=== PATIENT | female | born 1965 | race African-American/Black ===

== ENCOUNTER 2021-05-01 07:22 | Inpatient (IN) | payer OTHER ==
[~2021-05-01] VITALS: Ht 172.7 cm; Wt 159.2 kg
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
[~2021-05-01 07:22] MED LIST: ADALAT CC30 MG; ADVAIR 250-501 EACH; ASPIR 8181 MG; KEPPRA 500 MG500 M1; OXYCODONE HCL 55 MG; PERCOCET; TOPROL XL25 MG
[2021-05-01 07:23] VITALS: BP 133/76
[2021-05-01 10:00] VITALS: BP 119/86
--- NOTE | 2021-05-01 22:22 | NUR ---
PT ARRIVED ON UNIT POST SURGERY AT 2129. PT IS TEARFUL, YELLING, AND VERY ANXIOUS. C/O PAIN AND FEELING COLD. PRN PAIN MEDICATION PROVIDED DIRECTED AND WARM BLANKET APPLIED TO PT. ADMISSION COMPLETE. PT LEG BRACE WAS TIGHT AND PT C/O OF FEELING THOUGH HER LEG WAS GOING NUMB. NURSE READJUSTED LEG BRACE AND CHECKED PULSES AND SENSATION. PT STATED SHE COULD FEEL AFTERWARDS. PT IS ON ROOM AIR. VSS. AFEBRILE. CLEAR LIQUID DIET. WATER PITCHER PROVIDED. PT HAS BEEN EDUCATED ON USE OF CALL LIGHT AND BED CONTROLS. WILL CONTINUE TO MONITOR.
[2021-05-02] MEDS ORDERED: SYMBICORT80 MCG/4.1 INH (04:08)
[2021-05-02] MEDS ORDERED: ATORVASTATIN CA80 MG PO (04:08)
[2021-05-02] MEDS ORDERED: NIFEDIPINE ER30 MG PO (04:09)
[2021-05-02] MEDS ORDERED: HYDROCHLOROTHIA25 M1 PO (04:09)
[2021-05-02] MEDS ORDERED: OMEPRAZOLE 20 M20 M1 PO (04:10)
[2021-05-02] MEDS ORDERED: TIZANIDINE HCL4 M1 PO (04:10)
[2021-05-02] MEDS ORDERED: FLUTICASONE PRO16 GM INH (04:11)
[2021-05-02 04:24] VITALS: BP 140/80
[2021-05-02 05:32] LABS: HEMATOCRIT 29.5 % (37.0-47.0); HEMOGLOBIN 9.4 gm/dL (12.0-15.0)
[2021-05-02 05:44] LABS: POTASSIUM 4.3 mmol/L (3.5-5.1)
[2021-05-02 07:14] VITALS: BP 112/61
--- NOTE | 2021-05-02 11:24 | NUR ---
ASSUMED PT CARE THIS AM. PT IS ALERT & ORIENTED X4. PT HAS IV SITE ON L AC SALINE LOCKED. PHYSICAL THERAPY WAS WORKING WITH PT THIS AM. PT IS CURRENTLY SITTING ON THE CHAIR WITH CALL LIGHT WITHIN REACH. PT IS ON ROOM AIR. PT HAS BEEN CRYING AND C/O OF PAIN. GIVEN PAIN MEDICATION PER PT REQUEST. PT HAS R LEG IMMOBILIZER, RAYMOND DRESSING, VIVIANE WRAP AND ICE PACK. WILL CONTINUE TO MONITOR PT. FOLLOW POC.
--- NOTE | 2021-05-02 12:41 | O ---
[facility] [place] [address] OPERATIVE REPORT Name: VANNA TOLENTINO Room #: 440-P ADM IN M.R.#: [id number] Admission: 05/01/21 Attend Phys: Uri Mckinney, Discharge: Date of : 65 Report #: [id number] THIS REPORT FOR: cc: [facility] - Clinic physician unknown [facility] - Clinic physician unknown Keo Arias MD ~ DATE OF SERVICE: 05/01/2021 PREOPERATIVE DIAGNOSES: 1. Right leg tibial plateau fracture. 2. Right leg syndesmotic injury. POSTOPERATIVE DIAGNOSES: 1. Right leg tibial plateau fracture. 2. Right leg syndesmotic injury. PROCEDURES: 1. Right leg tibial plateau open reduction internal fixation. 2. Right syndesmotic open reduction internal fixation. SURGEON: Keo Arias MD RIGGER APPRENTICE: None. ANESTHESIA: General. ESTIMATED BLOOD LOSS: 100 mL. DRAINS: No drains. TOURNIQUET TIME: 120 minutes. DESCRIPTION OF PROCEDURE: The patient was brought to the operating room where she was placed under general anesthesia. Once under adequate general anesthesia, her right lower extremity was prepped and draped in a sterile manner. The extremity was elevated and a tourniquet placed to 350 mmHg. An anterior incision overlying the patella extending distally down the anterior tibia was then made. This was dissected down through the soft tissue to the anterior knee, and patellar tendon as well as the anterior tibia. The lateral compartment was opened exposing the fractures. Any hematoma was evacuated. There was a medial fracture as well. Any hematoma was evacuated from the fracture site. A provisional reduction with a 3.5 mm screw was made after placing a clamp on the lateral tibia over to the medial tibia. Reduction of the joint surface was achieved with a Justin elevator through this lateral window prior to provisional fixation with a lag screw across the 2 fracture fragments. Once this was in place, the lateral plate was placed after reducing the medial [facility] [address] [place] [address] OPERATIVE REPORT Name: VANNA TOLENTINO Room #: 440-P [facility] IN .R.#: [id number] Admission: 05/01/21 Attend Phys: Uri Mckinney, Discharge: Date of : 65 Report #: [id number] to lateral condyles of the proximal tibia. Excellent fixation and satisfactory alignment was achieved. This was a very long plate with 4 screws distal to the shaft fracture site. The medial joint was then reduced and fixed with a medial plate as well with locking screws proximally as in the lateral proximal plate from the Synthes set. Excellent fixation and alignment was achieved once these [address] The wound was irrigated copiously. Reduction of the syndesmotic ligament and fibular fracture was achieved with 2 distal screws placed across the syndesmotic joint. This was done through 2 percutaneous incisions, thus reducing the proximal fibular fracture. Once complete excellent fixation and alignment was achieved, the wound was irrigated copiously and closed with #1 Vicryl in the deep fascia, 2-0 Vicryl in subcutaneous tissues and zoraida were used for the skin. The wound was dressed with Xeroform, 4 x 4's, and a sterile soft compressive dressing along with a knee immobilizer. Tourniquet was let down at 120 minutes. Toes were pink and warm. Good capillary refill. There were no complications from the procedure. The patient tolerated the procedure well and was to the recovery room without incident. <ELECTRONICALLY SIGNED> By: Keo Arias MD 05/02/21 1241 1948 06 Keo Arias MD /nt
[2021-05-02 16:21] VITALS: BP 105/81
[2021-05-02 20:24] VITALS: BP 131/78
--- NOTE | 2021-05-03 03:00 | NUR ---
ASSESSED AT START OF SHIFT. PT C/O PAIN PO AND IV PAIN MEDICATION GIVEN SEE EMAR. PT RATES RT LEG PAIN 03/28. DENIES N/V. EXT CATH IN PLACE. FALL PRECAUTION MAINTAINED. WILL CONT TO MONITOR.
[2021-05-03 05:02] LABS: HEMATOCRIT 24.7 % (37.0-47.0)
[2021-05-03 05:22] LABS: POTASSIUM 4.6 mmol/L (3.5-5.1)
[2021-05-03 07:53] VITALS: BP 123/78
--- NOTE | 2021-05-03 10:00 | O ---
[facility] [place] [address] OPERATIVE REPORT Name: VANNA TOLENTINO Room #: 440-P ADM IN M.R.#: [id number] Admission: 05/01/21 Attend Phys: Uri Mckinney, Discharge: Date of : 65 Report #: [id number] THIS REPORT FOR: cc: [facility] - Clinic physician unknown [facility] - Clinic physician unknown Keo Arias MD ~ DATE OF SERVICE: 05/02/2021 PREOPERATIVE DIAGNOSIS: Right leg deep and posterior compartment syndrome. POSTOPERATIVE DIAGNOSIS: Right leg deep and posterior compartment syndrome. PROCEDURE: Right leg fasciotomy, superficial and deep posterior compartments. SURGEON: Keo Arias MD FELTER TENNIS BALLS: None. ANESTHESIA: General. ESTIMATED BLOOD LOSS: 50 mL. DRAINS: No drains. TOURNIQUET TIME: 30 minutes. DESCRIPTION OF PROCEDURE: The patient was brought to the operating room, where she was placed under general anesthesia. Once under adequate general anesthesia, her right lower extremity was prepped and draped in a sterile manner. The extremity was elevated and a tourniquet placed to 350 mmHg. A medial incision approximately 15 cm in length was made with dissection carried down to the fascia of the posterior leg. This was then incised through the superficial posterior compartment. Exposure was then made of the posterior deep compartment. This was then released bluntly with my finger. Pulses in the legs were verified via Doppler to be excellent, proximal and distal to the fracture sites in the leg. The wound was then irrigated copiously and closed with 0 Vicryl in , 2-0 Vicryl in subcutaneous tissue, zoraida were used for the skin. The fascia was left open. Tourniquet had been let down in the middle of the procedure in order to verify blood flow. The wounds were dressed with sterile soft compressive dressings. The patient was sent to the recovery room without incident. <ELECTRONICALLY SIGNED> By: Keo Arias MD 05/03/21 1000 1419 1437 Keo Arias MD /nt
--- NOTE | 2021-05-03 12:03 | NUR ---
Assumed pt care this am. Pt is alert & oriented x4. Pt has iv sites on l ac & l wrist. Physical therapy was working with pt this am. Ordered new knee immobilizer. Pt has external cath purewick in place. Given pain medication as per pt request. Pt daughter at the bedside. Will continue to monitor pt. Follow POC.
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
[2021-05-03 20:45] VITALS: BP 128/80
--- NOTE | 2021-05-04 02:58 | NUR ---
ASSESSED AT START OF SHIFT. PT RESTING IN BED. REQUESTED PAIN MEDS. PO MEDICATTION GIVEN. FALL PREC IN PLACE. PT IS OBESE AND NWB ON THE RT LEG. EXT FEMALE CATH IN PLACE. DENIES N/V. TEARFUL WHEN IN PAIN MANAGED WITH HYDROCODONE. NO FURTHER SIGNS OF DISCOMFORT. WILL CONT TO MONITOR.
[2021-05-04 04:22] VITALS: BP 112/78
[2021-05-04 08:21] LABS: HEMATOCRIT 23.1 % (37.0-47.0); HEMOGLOBIN 7.5 gm/dL (12.0-15.0); MCH 27.5 pg (26.0-34.0); MCHC 32.3 g/dL (28.0-37.0); MCV 85.1 fL (80.0-100.0); RBC 2.72 mil/uL (4.20-5.00); RDW 14.1 % (10.5-14.5); WBC 13.4 thou/uL (4.0-11.0)
[2021-05-04 08:30] LABS: CALCIUM 8.5 mg/dL (8.5-10.1); CREATININE 1.5 mg/dL (0.6-1.0)
--- NOTE | 2021-05-04 13:25 | NUR ---
ON-GOING ASSESSMENT: CM REVIEWED CHART AND SPOKE WITH PATIENT AT THE BEDSIDE. PT CONTINUES TO WORK WITH PHYSICAL THERAPY. [facility]N IS FOLLOWING PATIENT AND REPORTS THEY CAN MEDICALLY ACCEPT PENDING INSURANCE AUTH ONCE PT IS MEDICALLY STABLE. CM SPOKE WITH PATIENT WHO IS AGREEABLE WITH THE PLAN. CM WILL CONTINUE TO FOLLOW TO ASSIST NEEDED.
[2021-05-04 16:26] VITALS: BP 119/61
[2021-05-04 19:27] VITALS: BP 114/67
--- NOTE | 2021-05-05 04:13 | NUR ---
ALERT AND ORIENTED. SHE HAS BEEN HAVING LOOSE STOOLS. DENIES ANY ABDOMINAL PAIN OR NAUSEA. USING BEDPAN. AFEBRILE, IMMOBILIZER TO RLE.CALLS WITH NEEDS.
--- NOTE | 2021-05-05 08:14 | NUR ---
SENT DR BENDER A ROXANA TEXT THIS MORNING AT 0708 INFORMING HIM OF THE PATIENTS REFUSAL OF HER BUDESONIDE. I REQUESTED THAT MEDICATION BE DC'D AND DR BENDER AGREED. MEDICATION CHANGED BASED ON VERBAL ORDER FROM DR BENDER.
[2021-05-05 08:29] VITALS: BP 112/73
--- NOTE | 2021-05-05 10:32 | NUR ---
A/O X 4. ROOM AIR. BEDBOUND. LEFT AC IV AND LEFT FOREARM IV. RIGHT LEG 3+ EDEMA, RAYMOND DRESSING HAS DRIED BLOOD ON IT, RIGHT LEG IN IMMBOLIZER. LOOSE INCONT BM TODAY. HELD MIRALAX. NORCO GIVEN FOR RIGHT LEG PAIN.
--- NOTE | 2021-05-05 13:24 | NUR ---
ON-GOING ASSESSMENT: CASS REVIEWED CHART AND SPOKE WITH LIASON FROM WHO REPORTS THEY HAVE RECEIVED INSURANCE AUTH. CM NOTIFIED ATTENDING WHO STATED PT IS STABLE FOR DISCHARGE TODAY. PT IS GETTING HER COVID TEST COMPLETED WITH ANTICIPATION OF GOING TO 5N THIS AFTERNOON. CASS SPOKE WITH PT WHO IS AGREEABLE WITH THE PLAN AND REPORTS SHE HAS BEEN KEEPING HER ADULT DAUGHTER UPDATED. PLANS TO ADMIT TO 5N LATER TODAY.
[2021-05-05 14:21] LABS: HEMATOCRIT 22.7 % (37.0-47.0); HEMOGLOBIN 7.2 gm/dL (12.0-15.0); MCH 27.2 pg (26.0-34.0); MCHC 31.9 g/dL (28.0-37.0); MCV 85.5 fL (80.0-100.0); RBC 2.66 mil/uL (4.20-5.00); RDW 14.6 % (10.5-14.5); WBC 13.4 thou/uL (4.0-11.0)
[2021-05-05 14:33] LABS: CALCIUM 8.5 mg/dL (8.5-10.1); CREATININE 1.5 mg/dL (0.6-1.0); POTASSIUM 3.7 mmol/L (3.5-5.1)
[2021-05-05] MEDS ORDERED: ASPIRIN325 PO (14:33)
[2021-05-05] MEDS ORDERED: NORCO 10-325 T1 EACH PO (14:33)
== END 2021-05-05 16:03 | DRG 493 ==
LOC: ER 07:22 → EROBS 09:25 → TBA 17:13 → 4S 21:32
PROVIDERS: Hospitalist; Orthopaedic Surgery Foot and Ankle Surgery; ADMIT Surgery; ATTEND Surgery
PROC: 0QS Lower Bones, Reposition (ICD-10-PCS; principal; 2021-05-01)
PROC: 0QSG04Z Reposition Right Tibia with Internal Fixation Device, Open Approach (ICD-10-PCS; principal; 2021-05-01)
PROC: 0KNS0ZZ Release Right Lower Leg Muscle, Open Approach (ICD-10-PCS; principal; 2021-05-01)
DX: S82.141A Displaced bicondylar fracture of right tibia, initial encounter for closed fracture (principal); D62 Acute posthemorrhagic anemia; T79.A0XA Compartment syndrome, unspecified, initial encounter; Z68.43 Body mass index [BMI] 50.0-59.9, adult; W18.39XA Other fall on same level, initial encounter; Y93.89 Activity, other specified; Y92.89 Other specified places as the place of occurrence of the external cause; Y99.8 Other external cause status; Z20.822 Contact with and (suspected) exposure to COVID-19; Z88.8 Allergy status to other drugs, medicaments and biological substances; Z91.040 Latex allergy status; Z91.013 Allergy to seafood; I10 Essential (primary) hypertension; E78.5 Hyperlipidemia, unspecified; E66.01 Morbid (severe) obesity due to excess calories; G40.909 Epilepsy, unspecified, not intractable, without status epilepticus; K21.9 Gastro-esophageal reflux disease without esophagitis
CPT/HCPCS: 10102; 50010; 50101; 50386; 51132; 51412; 56524; 56526; 56667; 57091; 57103; 57115; 57116; 57181; 58409; 58411; 58954; 58980; 58981; 58983; 62110; 62900; 70005

== ENCOUNTER 2021-05-05 11:52 | Inpatient (IN) | payer OTHER ==
[~2021-05-05] VITALS: Ht 162.6 cm; Wt 132.4 kg
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
[~2021-05-05 11:52] MED LIST changes: +ATORVASTATIN CA80 MG PO; +FLUTICASONE PRO16 GM INH; +HYDROCHLOROTHIA25 M1 PO; +NIFEDIPINE ER30 MG PO; +OMEPRAZOLE 20 M20 M1 PO; +SYMBICORT80 MCG/4.1 INH; +TIZANIDINE HCL4 M1 PO
[2021-05-05] MEDS ORDERED: NORCO 10-325 T1 EACH PO (14:33)
[2021-05-05] MEDS ORDERED: ASPIRIN325 PO (14:33)
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
--- NOTE | 2021-05-05 16:30 | NUR ---
1600 PATIENT ADMITTED TO ROOM 512. PATIENT IS ALERT AND ORIENTED X4. PATIENT GONZALEZ'S, SECURITY REP ARE EQUAL. LUNGS ARE CLEAR AND DEMINISHED. ABD IS SOFT WITH BSX4. PAIENT HAS HAD 3 LOOSE STOOLS TODAY. PATIENT IS INCONTINENT OF URINE. PATIENT HAS A BRACE ON HER RIGHT LEG. PATIENT IS NON-WT BEARING ON THE RIGHT LEG. S.L. IS PATENT IN THE LEFT ARM. FALL AND SAFETY PROTOCOLS IN PLACE. CALL LIGHT IS IN REACH. CONSENTS SIGNED. NO C/O PAIN AT THIS TIME. PT/OT/ST EVALS TO BE DONE IN A.M. WILL CONTINUE TO MONITER.
[2021-05-05 19:22] VITALS: BP 112/76
--- NOTE | 2021-05-06 00:19 | NUR ---
PT ALERT AND ORIENTED X 4. RIGHT LEG DRESSINGS INTACT WITH LARGE AMTS BLOODY DRAINAGE. BRACE INTACT TO RIGHT LEG. PT INCONT LARGE AMT LIQUID BROWN STOOL. PT C/O PAIN IN RIGHT LEG. HYDROCODONE GIVEN ORDERED. PT TAKES MEDS WITH WATER WITHOUT DIFFICULTY. BED ALARM ON FOR SAFETY. PT CHECKED ON HOURLY ROUNDS.
[2021-05-06 07:39] VITALS: BP 109/73
[2021-05-06 10:40] LABS: HEMATOCRIT 23.1 % (37.0-47.0); HEMOGLOBIN 7.3 gm/dL (12.0-15.0); MCHC 31.4 g/dL (28.0-37.0); RBC 2.69 mil/uL (4.20-5.00); RDW 14.7 % (10.5-14.5); WBC 13.2 thou/uL (4.0-11.0)
[2021-05-06 10:59] LABS: ALBUMIN 2.3 g/dL (3.4-5.0); DIRECT BILIRUBIN 0.6 mg/dL (<0.1-0.2); TOTAL BILIRUBIN 1.1 mg/dL (0.2-1.0); TOTAL PROTEIN 7.7 g/dL (6.4-8.2)
[2021-05-06 11:09] LABS: D-DIMER 6.08 ug/mLFEU (0.19-0.50); PROTIME 10.9 Seconds (10.5-12.1)
--- NOTE | 2021-05-06 11:15 | NUR ---
Pt. up to BSC & had a syncopal episode. Pt. was slow to respond so narcan was given. Labs drawn & pt went to CT. Attempted to start a NS bolus but IV infiltrated. Unable to start one so IV team notified. Pt. went down for a non-contrast CT so she could be moved to room 206
[2021-05-06 11:26] LABS: CALCIUM 8.3 mg/dL (8.5-10.1); CREATININE 2.1 mg/dL (0.6-1.0); POTASSIUM 4.3 mmol/L (3.5-5.1)
[2021-05-06 12:05] LABS: FOLIC ACID 9.8 ng/mL (8.6-58.9)
[2021-05-07 07:08] LABS: GLYCOHEMOGLOBIN (HGB A1C) 5.7 % (4.8-5.6)
--- NOTE | 2021-05-08 07:30 | EKG ---
[address] [address] ELECTROCARDIOGRAM REPORT Name: GREG TOLENTINOINA Room #: 512-P [facility] IN M.R.#: [id number] Admission: 05/05/21 Attend Phys: Chi Justin MD Discharge: 05/06/21 Date of : 65 Report #: [id number] [facility] Test Date: 2021-05-06 Test Time: 09:57:16 Pat Name: VANNA TOLENTINO Department: Room: 512 Gender: F Painter Maintenance: MINAL : 1965 Requested By: Francisca Villegas Order Number: [id number] MD: Loki Watters Measurements Intervals [place] Rate: 91 P: 58 VA: 150 QRS: -16 QRSD: 109 T: -18 QT: 376 QTc: 463 Interpretive Statements Sinus rhythm Incomplete left bundle branch block No previous ECG available for comparison Electronically Signed On 05-08-2021 7:30:29 CDT by Loki Watters [email or web address] <ELECTRONICALLY SIGNED> By: Loki Watters MD, [facility] 05/08/21 0730 0957 6 Loki Watters MD, FACC /EPI
== END 2021-05-06 12:03 | disposition short-term general hospital (02) | DRG 563 ==
PROVIDERS: Hospitalist; Internal Medicine; Nurse Practitioner Family; ADMIT Physical Medicine & Rehabilitation; ATTEND Physical Medicine & Rehabilitation
DX: S82.141A Displaced bicondylar fracture of right tibia, initial encounter for closed fracture (principal); T79.A21A Traumatic compartment syndrome of right lower extremity, initial encounter; D62 Acute posthemorrhagic anemia; Z68.43 Body mass index [BMI] 50.0-59.9, adult; W18.39XA Other fall on same level, initial encounter; G89.4 Chronic pain syndrome; E66.01 Morbid (severe) obesity due to excess calories; K21.9 Gastro-esophageal reflux disease without esophagitis; G40.909 Epilepsy, unspecified, not intractable, without status epilepticus; I95.9 Hypotension, unspecified; I10 Essential (primary) hypertension; Z88.6 Allergy status to analgesic agent; Z91.040 Latex allergy status; Z91.013 Allergy to seafood; Z93.3 Colostomy status; Y93.89 Activity, other specified; Y99.8 Other external cause status; Y92.89 Other specified places as the place of occurrence of the external cause
CPT/HCPCS: 10112

== ENCOUNTER 2021-05-06 10:33 | Inpatient (IN) | payer OTHER ==
[~2021-05-06] VITALS: Ht 162.6 cm; Wt 157.0 kg
--- NOTE | ~2021-05-06 | EEG ---
[facility] [place] [address] [place] [address] ELECTROENCEPHALOGRAM Name: VANNA TOLENTINO Room #: 206-P ADM IN M.R.#: [id number] Admission: 05/06/21 Attend Phys: Francisca Villegas MD Discharge: Date of : 65 Report #: [id number] THIS REPORT FOR: //name// This patient's EEG was done to evaluate the patient for the possibility of a seizure. EEG was done by placing the electrode by standard 10-20 system of electrode placement. Both referential and sequential montages were used for recording. Background activity in this patient's EEG is 10 Hz and 30 microvolt. Photic stimulation is unremarkable. The patient went to sleep and that is associated with bilateral slowing and vertex sharp waves. Throughout the record, no active epileptiform activity or postictal slowing was noticed. IMPRESSION: This patient's EEG is within normal limits and does not demonstrate any active epileptiform activity or postictal slowing. Thank you very much for this referral. By: 1100 1122 Ac Luna MD /nt
[~2021-05-06 10:33] MED LIST changes: +ASPIRIN325 PO; +NORCO 10-325 T1 EACH PO
[2021-05-06 12:14] VITALS: BP 115/71
--- NOTE | 2021-05-06 12:27 | NUR ---
PATIENT TRANSPORTED TO CT FIRST TO SCAN HEAD AND RIGHT LEG WITH NO CONTRAST. PATIENT TOLERATED WELL. HAD DIFFICULTY PUTTING BRACE BACK ON AND CALLED PT/OT TO MEET IN ROOM 206 CCU TO AID WITH IT. PATIENT REPORT GIVEN TO NURSE - ON DUTY. ALL BELONGINGS TRANSPORTED DOWN TO HER ROOM - IV TEAM PICKARD OF NEEDING TO START ONE DOWN IN CCU FOR CONTRAST CT SCHEDULED. PATIENT ALERT AND ORIENTED WHEN TRANSPORTED.
[2021-05-06 13:52] LABS: HEMATOCRIT 22.6 % (37.0-47.0); HEMOGLOBIN 7.3 gm/dL (12.0-15.0); MCH 27.8 pg (26.0-34.0); MCHC 32.4 g/dL (28.0-37.0); MCV 85.8 fL (80.0-100.0); RBC 2.63 mil/uL (4.20-5.00); RDW 14.5 % (10.5-14.5); WBC 13.2 thou/uL (4.0-11.0)
[2021-05-06 14:11] LABS: CALCIUM 8.6 mg/dL (8.5-10.1); POTASSIUM 3.9 mmol/L (3.5-5.1)
[2021-05-06 14:16] LABS: ALBUMIN 2.3 g/dL (3.4-5.0); TOTAL PROTEIN 7.6 g/dL (6.4-8.2)
[2021-05-06 16:31] VITALS: BP 128/91
--- NOTE | 2021-05-06 16:43 | NUR ---
PATIENT UNABLE TO COMPLETE MRI DUE TO "EXCRUCIATING" PAIN, SHE WAS CRYING AND YELLING OUT IN PAIN ASKING FOR THE PROCEDURE TO BE OVER WITH. MRI FINISHED EARLY, PARTIALLY OBTAINABLE. FENTANYL GIVEN IN MRI. DR. MORAN UPDATED THROUGHOUT SITUATION. DISCUSSED WITH DR. MORAN ONCE PATIENT RETURNED BACK TO ROOM. I DISCUSSED PAIN MEDICATION ALTERNATIVES CURRENT ORDERS WERE NOT ADEQUATELY CONTROLING PAIN TO A TOLERABLE LEVEL. DR. MORAN INSTRUCTED THIS RN TO PERFORM BEDSIDE SWALLOW EVALUATION. EVALUATION COMPLETE, PATIENT PASSED. WILL DISCUSS BACK WITH DR. MORAN.
[2021-05-06 19:30] VITALS: BP 110/71
[2021-05-07 04:20] VITALS: BP 119/66
--- NOTE | 2021-05-07 06:14 | NUR ---
PT LYING IN BED. FENTANYL PROVIDING PAIN RELIEF. RESTING COMFORTABLY. NO NEEDS VOICED. CALL LIGHT WITHIN REACH. FREQUENT OSERVATION.
[2021-05-07 07:18] VITALS: BP 97/64
[2021-05-07 11:14] VITALS: BP 99/70
[2021-05-07 16:12] VITALS: BP 121/64
--- NOTE | 2021-05-07 17:12 | NUR ---
PATIENT WAS IN PAIN EARLIER AND PRN PAIN MEDS ADMININSTERED BUT THEY WER NOT EFFECTIVE. THIS PM SHE WAS GIVNE OXYCODONE AND SHE HAS BEEN SLEEPING SINCE THEN. SHE IS ALERT ORIENTED X4 WHEN AWAKE. SHE DID REFUSE TO LET LAB DRAW HER BLOOD . STATES SHE IS IN TOO MUCH PAIN. WILL CONT WITH PLAN OF CARE.
[2021-05-07 17:45] LABS: URINE BILIRUBIN 1+ (Negative); URINE BLOOD 1+ (Negative); URINE CLARITY SL CLOUDY; URINE COLOR YELLOW; URINE GLUCOSE-RANDOM* NEGATIVE (Negative); URINE KETONES NEGATIVE (Negative); URINE NITRITE-REFLEX NEGATIVE (Negative); URINE PROTEIN (DIPSTICK) TRACE (Negative); URINE SPECIFIC GRAVITY 1.025 (1.005-1.035)
[2021-05-07 17:56] LABS: ICTOTEST (BILI CONFIRMATORY) Negative (Negative); URINE LEUKOCYTES-REFLEX 2+ (Negative)
[2021-05-07 17:58] LABS: CASTS None Seen /LPF (None Seen); CRYSTALS None Seen /LPF (None Seen); SQUAMOUS 0-3 Few /LPF (0-3); URINE RBC 3-10 Few /HPF (NONE SEEN); URINE WBC-REFLEX 6-15 Few /HPF (0-5)
[2021-05-07 19:33] VITALS: BP 128/69
[2021-05-08 02:58] LABS: HEMATOCRIT 21.5 % (37.0-47.0); HEMOGLOBIN 7.2 gm/dL (12.0-15.0); MCH 28.1 pg (26.0-34.0); MCHC 33.4 g/dL (28.0-37.0); MCV 84.3 fL (80.0-100.0); RBC 2.55 mil/uL (4.20-5.00); RDW 14.4 % (10.5-14.5); WBC 12.1 thou/uL (4.0-11.0)
[2021-05-08 03:04] LABS: CALCIUM 8.8 mg/dL (8.5-10.1); CREATININE 2.2 mg/dL (0.6-1.0)
--- NOTE | 2021-05-08 05:36 | NUR ---
PT LYING IN BED. OXY IR AND FENTANYL PROVIDING PARTIAL PAIN RELIEF. RESTING CURRENTLY. NO NEEDS VOICED. CALL LIGHT WITHIN REACH. FREQUENT OBSERVATION.
[2021-05-08 05:46] VITALS: BP 119/74
[2021-05-08 08:20] VITALS: BP 110/73
--- NOTE | 2021-05-08 11:27 | NUR ---
Assess due to RD consult. Recent right lower extremity fracture. Hx chronic narcotic use, colostomy, htn, extreme class obesity. Was on rehab then admitted to acute floor with AMS, syncopal episodes, and anxiety. Attempted visit this am, pt anxious and moaning. Stated wanted to be cleaned up-alerted RN. No much of appetite but drank ensure which has been ordered with meals. Once eating better, will either discontinue oral supplement or change to glucerna shakes due to obesity. Low nutrition risk at this time.
[2021-05-08 12:30] VITALS: BP 108/53
--- NOTE | 2021-05-08 15:52 | NUR ---
PT C/O OF INCREASED PAIN THIS AM AND HAVING AMXIETY. ASSESS PT LAKISHA BARILLAS AND DR. BUSH. PAIN MEDICATION CHANGED AND ANXIETY MEDICATION STARTED. PT REFUSES TO BE CLEANED UP HALF WAY THRO BED CHANGE SHE STATES SHE CANT TOLERATE BEING TURNED. PT ALSO REFUSING LAB DRAWS. PT SLEEPING THIS AFTERNOON AND DOES NOT WANT TO BE DISTURBED. WILL CONTINUE TO ASSESS.
[2021-05-08 16:00] VITALS: BP 118/73
--- NOTE | 2021-05-08 18:41 | NUR ---
PT HAVING FREQUENT LIQUID STOOLS WILL CALL FOR ORDER TO SEND STOOL FOR CDIFF. PT REFUSING PURE WICK OR RECTAL TUBE. PT VERY HARD TO TURN AND KEEP PAIN FREE R/T MORBID OBESITY. FREQUENTLY MEDICATE FOR PAIN. NEUROLOGY SIGN OFF CASE AND PSYCH INSTRUCT PT IS CLEAR TO GO AMA IF SHE WANTS TO BUT PT HAS NOT EXPRESSED ANY DESIRE TO LEAVE AMA TO ME.
[2021-05-08 21:00] VITALS: BP 110/72
[2021-05-09 04:45] VITALS: BP 116/72
[2021-05-09 08:20] VITALS: BP 117/75
--- NOTE | 2021-05-09 08:57 | NUR ---
PAIN MANAGEMENT POC FOR SHIFT. IVF GTT AND IVPB ANTIBIOTICS PER POC. PT IS BEDREST WITH WOUND TO LEFT BRAN. PT CAN HELP ROLL HERSELF IN BED. COMPLETE BED CHANGE DONE AT 0300 DUE TO LEAKING EXTERNAL CATH. CDIFF AND MRSA SAMPLE SENT TO LAB. PT FAMILY LIKE TO BE OVERLY INVOLVED IN CARE AND WANTS TO WATCH VIA FACETIME.
[2021-05-09 10:41] LABS: HEMATOCRIT 21.6 % (37.0-47.0); HEMOGLOBIN 7.4 gm/dL (12.0-15.0); MCH 28.8 pg (26.0-34.0); MCHC 34.1 g/dL (28.0-37.0); MCV 84.3 fL (80.0-100.0); RBC 2.56 mil/uL (4.20-5.00); RDW 14.6 % (10.5-14.5); WBC 13.7 thou/uL (4.0-11.0)
[2021-05-09 10:54] LABS: CALCIUM 9.1 mg/dL (8.5-10.1); CREATININE 2.6 mg/dL (0.6-1.0); POTASSIUM 3.6 mmol/L (3.5-5.1)
[2021-05-09 12:50] VITALS: BP 119/66
--- NOTE | 2021-05-09 14:45 | NUR ---
Patient admits to CCU from [facility] rehab post rapid responce. Patient intially admit Apr 13 post fall and R tibia plateau fx s/p ORIF. Patient then dc to acute rehab unit with readmission to acute care. patient resides at extended stay [facility] with adult dtr and granddtr. Plan to return to extended stay post dc from rehab. Patient crying in pain today. Delay dc to rehab unit until pain better controlled. Possible dc in am.
[2021-05-09 16:45] VITALS: BP 120/76
[2021-05-09 19:22] VITALS: BP 120/69
--- NOTE | 2021-05-10 02:45 | NUR ---
PT IS ALERT AND ORIENTED X4. COMPLAINS OF PAIN IN RIGHT LEG. PAIN MEDS GIVEN SEE MAR FOR TIME OF ADMINISTRATION. ON ROOM AIR LUNGS ARE CLEAR. SLEEPING AFEER PAIN MEDS GIVEN TO PT. APPEARS TIRED FROM THERAPY TODAY NOTED SLEEPY TONIGHT. SINUS RHYTHM NOTED. PULLS THE LEADS OFF HER DOESNT WANT THE MONITOR ON HER SHE REPORTS. EXPLAIN ITS IN HER PLAN OF CARE. DRESSING TO RIGHT LEG. CALL LIGHT WITHIN REACH IF NEEDS ASSTACNCE
[2021-05-10 03:15] VITALS: BP 140/77
[2021-05-10 07:54] VITALS: BP 121/78
[2021-05-10 11:08] VITALS: BP 112/72
--- NOTE | 2021-05-10 11:31 | NUR ---
PT IS A&OX4. PT PULLED OUT IV AND IS REFUSING FOR STAFF TO STICK HER FOR LABS. RECEIVED ORDER FROM NEPHROLOGY FOR MIDLINE. PT AGREED TO MIDLINE INSERTION. PT CRYING OUT IN PAIN. EDUCATED PT TO CALL WHEN IN PAIN FOR PAIN MEDICATION. PT REFUSING TO BE CHANGED AT THIS TIME DUE TO PAIN. GAVE PRN HYDROCODONE FOR PAIN IN RIGHT LEG. DRESSING TO RIGHT LEG IS INTACT. 3+ PITTING EDEMA TO RIGHT LEG AND FOOT. WAITING FOR MIDLINE TO BE PLACED AT THIS TIME. WILL CONTINUE TO MONITOR.
--- NOTE | 2021-05-10 12:26 | NUR ---
VAT CONSULTED BY RENAL MD FOR MIDLINE. PT'S LABS,MEDS,HX,REVIEWED. PT HAS VERY LARGE ARMS DIFFICULT SEEING VESSELS. R ARM HAS SEVERAL NONCOMPRESSABLE VESSELS. LIAN BASILIC WAS WIDELY PATENT BUT VERY DEEP. 4FR BIOFLO MIDLINE TRIMMED TO 16CM INSERTED TO 0CM WITH BRISK BR. DISCUSSED WITH PT TO NOT PULL THIS LINE OUT SINCE SHE HAS LIMITED VESSELS. MIDLINE RELEASED FOR IMMEDIATE USE PER PROTOCOL
[2021-05-10 13:04] LABS: ALBUMIN 2.2 g/dL (3.4-5.0); CALCIUM 8.8 mg/dL (8.5-10.1); CREATININE 2.6 mg/dL (0.6-1.0); PHOSPHORUS 5.8 mg/dL (2.6-4.7)
[2021-05-10 15:51] VITALS: BP 105/76
--- NOTE | 2021-05-10 17:09 | NUR ---
5N following and can accept for readmission once medically stable and pain control improved.
[2021-05-10 19:43] VITALS: BP 118/71
--- NOTE | 2021-05-11 02:14 | NUR ---
HAD MULTIPLE DIARRHEA STOOLS. BARRIER CREAM USED FOR COCCYX AND PERIAREA. NOTIFIED ELIGIBILITY CONSULTANT AND LOMOTOL GIVEN. ASSIST TO REPOSITION. CONTINUE TO ASSES
[2021-05-11 05:25] VITALS: BP 108/87
--- NOTE | 2021-05-11 06:00 | NUR ---
RECEIVED REPORT FROM MERLIN JENNINGS.ASSUMED CARE AT 0100 AM.PT WAS SLEEPING THEN THIS MORNING PT COMPLAIN OF LEG PAIN.FENTANYL GIVEN;SLEEPING WHEN REASSESED.MONITOR SHOWS SR.POC CONTINUED.
[2021-05-11 08:10] VITALS: BP 133/71
[2021-05-11 11:20] VITALS: BP 107/70
[2021-05-11 12:50] LABS: CALCIUM 8.7 mg/dL (8.5-10.1); CREATININE 2.7 mg/dL (0.6-1.0); POTASSIUM 4.3 mmol/L (3.5-5.1)
--- NOTE | 2021-05-11 16:04 | NUR ---
PT SLEEPY MOST OF SHIFT. PT CRIES OUT IN PAIN OF RLE, GOOD PAIN RELIEF WITH HYDROCODONE OR FENTYNL. PT REFUSED TO GO TO CT DUE TO PAIN. CHANGED PT'S DRESSINGS THIS SHIFT. PT INCONTINENT OF BOWELS AND URINE WITH PUREWICK IN PLACE. PT ALERT AND ORIENTED X4, BUT VERY ANXIOUS AND RESTLESS. PT DENIES NEEDS AT THIS TIME. WILL CONTINUE TO MONITOR.
[2021-05-11 16:10] VITALS: BP 114/57
[2021-05-11 20:14] VITALS: BP 113/74
[2021-05-12 05:36] VITALS: BP 122/76
[2021-05-12 05:44] LABS: ALBUMIN 2.1 g/dL (3.4-5.0); CALCIUM 8.6 mg/dL (8.5-10.1); CREATININE 2.8 mg/dL (0.6-1.0); PHOSPHORUS 6.2 mg/dL (2.5-4.9); POTASSIUM 4.1 mmol/L (3.5-5.1)
--- NOTE | 2021-05-12 06:03 | NUR ---
RECEIVED CARE OF THIS PATIENT AT 1900. PATIENT ALERT AND ORIENTED X4. C/O LOTS OF PAIN, MED GIVEN SOON POSSIBLE. DRESSING ON RLU D/I. MOANS AND GROANS MOST OF NIGHT. SLEPT LITTLE THIS SHIFT.
--- NOTE | 2021-05-12 08:31 | NUR ---
PT REFUSED OT THIS MORNING DUE TO EXCRUCIATING LEFT LEG PAIN
--- NOTE | 2021-05-12 09:36 | NUR ---
PT HAS REFUSED TO HAVE THE TELEMETRY MONITORED PATCHES REPLACED. PT IS CURRENTLY NOT ON TELEMETRY.
[2021-05-12 09:57] VITALS: BP 130/83
--- NOTE | 2021-05-12 11:13 | NUR ---
PT REFUSING TELE. CONTACT DR. OSCAR TO INFORM AND SHE GAVE ORDER TO DISCONTINUE TELE.
--- NOTE | 2021-05-12 11:32 | NUR ---
PATIENT IS A POTENTIAL CANDIDATE FOR ACUTE REHAB/5[facility]. PRIOR TO ADMITTING, PATIENT WILL HAVE TO DEMONSTRATE ABILITY TO PARTICIPATE WITH THERAPY AND HAVE TOLERANCE FOR 3 HOURS OF THERAPY A DAY. WILL NEED OR MEDICAID AUTHORIZATION. WILL CONTINUE TO FOLLOW.
--- NOTE | 2021-05-12 14:00 | NUR ---
OTL ATTEMPTED X2 AND 4 STAFF IN ROOM PUTTING LARA IN,
[2021-05-12 14:26] LABS: URINE BILIRUBIN NEGATIVE (Negative); URINE BLOOD TRACE (Negative); URINE CLARITY CLEAR; URINE COLOR YELLOW; URINE GLUCOSE-RANDOM* NEGATIVE (Negative); URINE KETONES TRACE (Negative); URINE LEUKOCYTES NEGATIVE (Negative); URINE NITRITE NEGATIVE (Negative); URINE PROTEIN (DIPSTICK) NEGATIVE (Negative); URINE SPECIFIC GRAVITY 1.015 (1.005-1.035); URINE UROBILINOGEN 0.2 E.U./dl (0.2-1.0)
[2021-05-12 14:31] LABS: PROT/CREAT RATIO 0.2; URINE CREATININE-RANDOM* 178.8 mg/dL; URINE PROTEIN-RANDOM* 30.2 mg/dL (<11.9)
[2021-05-12 16:00] VITALS: BP 117/58
--- NOTE | 2021-05-12 16:17 | NUR ---
Case discussed with the care team. DC to [facility] acute rehab on hold due to poor tolerance, pain control and anxiety issues. Pt continues on iv atb. Ortho, ID, Rehab, Renal and Neuro are involved. Will reassess early next week. The pt does not have SNF benefit with insurance plan but will need to increase tolerance and participation to go to acute rehab. Will follow.
--- NOTE | 2021-05-12 18:16 | NUR ---
PT HAD LARA PLACED THIS AFTERNOON, THERE WAS A DELAY IN LARA PLACEMENT DUE TO LATEX ALLERGY. LARA CAME FROM CENTRAL SUPPLY. PT HAD 1 BOWEL MOVEMENT THIS AM. PT REFUSED LOVENOX AND MIRALAX.
--- NOTE | 2021-05-12 18:37 | NUR ---
PT DAUGHTER CALLED AND SPOKE WITH JANETH REQUESTING THE PT BE TRANSFERRED TO [facility].
--- NOTE | 2021-05-12 19:01 | NUR ---
INFORM DR. OSCAR THAT FAMILY REQUEST TRANSFER TO [facility]. DR. OSCAR SAID THAT THIS WILL BE ADDRESSED IN THE MORNING.
[2021-05-13 02:40] VITALS: BP 118/64
[2021-05-13 05:19] LABS: ALBUMIN 1.8 g/dL (3.4-5.0); CALCIUM 8.3 mg/dL (8.5-10.1); CREATININE 2.2 mg/dL (0.6-1.0); PHOSPHORUS 5.1 mg/dL (2.5-4.9); POTASSIUM 4.2 mmol/L (3.5-5.1)
--- NOTE | 2021-05-13 06:29 | NUR ---
PT C/O R LEG PAIN, CRYING AND ANXIOUS THAT LOOSE STOOLS STARTED AGAIN, PRN MEDS GIVEN, FLUIDS INFUSING THROUGH L UPPER PICC, LARA WITH PINK URINE AND CLOTS PT THINKS IT WAS PULLED LOOKS CLEARER THIS AM, REFUSED MEALS YESTERDAY WOKE UP AT 0200 REQUESTING TURKEY SANDWICH, VSS WILL CON'T TO MONITOR PER PPOC.
[2021-05-13 08:00] VITALS: BP 113/77; BP 119/64
--- NOTE | 2021-05-13 10:36 | NUR ---
WAS NOTIFIED THAT PT IS WANTING TO TRANSFER TO [facility] TO BE CLOSER TO HER FAMILY. NOTIFIED [facility] AND SPOKE WITH HAILEE WENT OVER PT'S MEDICAL HISTORY AND SHE REQUESTED TO FAX ONLY THE [employer] INSURANCE INFO ON IT AND COVID RESULT. INFORMATION FAXED RECEIVED CONFIRMATION. SPOKE WITH PT'S NURSE KIMBERLEY AND LET HER KNOW THAT WE ARE LOOKING INTO TRANSFER AND WILL KEEP HER UPDATED.
[2021-05-13 12:00] VITALS: BP 134/83
[2021-05-13 15:40] LABS: WBC 16.3 thou/uL (4.0-11.0)
[2021-05-13 15:42] LABS: MCH 26.7 pg (26.0-34.0); MCHC 31.3 g/dL (28.0-37.0); MCV 85.2 fL (80.0-100.0); RBC 2.17 mil/uL (4.20-5.00); RDW 15.3 % (10.5-14.5)
[2021-05-13 15:47] LABS: HEMATOCRIT 18.5 % (37.0-47.0); HEMOGLOBIN 5.8 gm/dL (12.0-15.0)
[2021-05-13 16:00] VITALS: BP 125/70
[2021-05-13 16:49] LABS: HEMATOCRIT 18.7 % (37.0-47.0); HEMOGLOBIN 5.9 gm/dL (12.0-15.0)
[2021-05-13 19:24] VITALS: BP 125/50
--- NOTE | 2021-05-13 20:13 | NUR ---
Assumed care of pt this AM. Pt A&O x4, tearful. Given PRN pain medication for pain. Pt had multiple loose stools, sent specimen for cdiff, given PRN loperamide. Pt running low grade temp- notified Dr. Dominguez. Orders for bld cultures x2 & CBC obtained. Critical hgb of 5.[address] Dominguez. Orders for type & screen w/ 2 units PRBC obtained. Pt to get CT abd today w/ GI consulted. Pt needs met throughout day. Spoke to pts daughter & answered all questions.
[2021-05-13 23:24] VITALS: BP 85/47
[2021-05-14] VITALS (8 sets, daily range): BP systolic 95–126; BP diastolic 49–79
[2021-05-14 04:31] LABS: ALBUMIN 1.6 g/dL (3.4-5.0); CALCIUM 8.2 mg/dL (8.5-10.1); CREATININE 1.5 mg/dL (0.6-1.0); PHOSPHORUS 4.4 mg/dL (2.5-4.9); POTASSIUM 3.8 mmol/L (3.5-5.1)
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
[2021-05-14 05:27] LABS: ABSOLUTE NEUTROPHILS 11.1 thou/uL (1.4-8.2); BASOPHILS 0.6 % (0.0-2.0); EOSINOPHILS 2.2 % (0.0-3.0); LYMPHOCYTES 13.9 % (24.0-44.0); MCH 28.1 pg (26.0-34.0); MCHC 32.4 g/dL (28.0-37.0); MCV 86.8 fL (80.0-100.0); MONOCYTES 6.4 % (1.0-8.0); PLATELET COUNT 500 thou/uL (150-400); POLYS 76.9 % (36.0-66.0); RBC 2.11 mil/uL (4.20-5.00); RDW 15.6 % (10.5-14.5); WBC 14.4 thou/uL (4.0-11.0)
[2021-05-14 05:44] LABS: HEMATOCRIT 18.3 % (37.0-47.0); HEMOGLOBIN 5.9 gm/dL (12.0-15.0)
[2021-05-14 08:02] LABS: HEMOGLOBIN 6.7 gm/dL (12.0-15.0); MCH 27.4 pg (26.0-34.0); MCV 85.7 fL (80.0-100.0); RBC 2.46 mil/uL (4.20-5.00); RDW 16.4 % (10.5-14.5); WBC 14.2 thou/uL (4.0-11.0)
--- NOTE | 2021-05-14 09:00 | NUR ---
pt con't with freq. liquids stools, c/o r leg pain scheduled and prn pain meds given, pt left for ct and 2u prbc given, critical hh called dr lakeshia armijo on pt and notified reordered cbc after 2nd unit finished, vss except bps 90's to low 100's, r arm iv infiltrated and dc'd, report given to next shift to con't with ppoc.
--- NOTE | 2021-05-14 10:54 | NUR ---
Assumed care of pt this AM. Pt is A&O x4, tearful about pain in leg. Pt received 2 units PRBC w/ repeat hgb this AM still <7. Dr. Dominguez paged & orders for 1 unit PRBC obtained & transfusing. Pt taken for CT rt leg this AM as well. Ortho & GI saw pt today. Pt will be NPO after midnight tonight per GI. VSS - tachycardia w/o fever. Will continue to monitor pt throughout day.
[2021-05-14 17:05] LABS: HEMATOCRIT 22.9 % (37.0-47.0); HEMOGLOBIN 7.4 gm/dL (12.0-15.0)
--- NOTE | 2021-05-14 22:57 | NUR ---
ASSUMED CARE OF PT AT 1845. PT ALERT X4. ANXIOUS AND TEARFUL. C/O PAIN TO RLE AND C/O RASH ITCHING. PT STATED HER ICHING HAD BEEN GOING ON FOR SEVERAL DAYS NOTIFIED INSPECTOR CONVEYOR LINE PT ON OXYCODONE AND IS ALLERGIC TO MORPHINE. OCYCODONE DISCONTINUED. CONTINUED IV ABX ORDERED AFTER BENADRYL AND PEPCID GIVEN. FENTANYL GIVEN FOR RLE PAIN. DRESSING TO RLE REMAINS DRY AND INTACT. PULSE PALPABLE WITH DOPPLER. FOOT IS WARM. SHE WAS ABLE TO MOVE RLE. PT STATED THIS IS NEW THAT SHE CAN MOVE HER RIGHT LE. PT ANXIOUS ABOUT POSSIBLY GOING TO HAVE SURGERY TOMORROW. MUCH ENCOURAGEMENT GIVEN. NS INFUSING LEFT ML. WILL CONTINUE TO MONITOR PT FOR CHANGES.
--- NOTE | 2021-05-15 00:04 | NUR ---
STOOL FOR OB SENT TO LAB. BED CHANGED BATH COMPLETED.
[2021-05-15 04:45] VITALS: BP 121/75
[2021-05-15 07:39] LABS: ABSOLUTE NEUTROPHILS 10.6 thou/uL (1.4-8.2); ALBUMIN 1.7 g/dL (3.4-5.0); BASOPHILS 0.4 % (0.0-2.0); CALCIUM 8.5 mg/dL (8.5-10.1); CREATININE 1.3 mg/dL (0.6-1.0); EOSINOPHILS 2.5 % (0.0-3.0); HEMOGLOBIN 7.5 gm/dL (12.0-15.0); LYMPHOCYTES 15.5 % (24.0-44.0); MCH 27.8 pg (26.0-34.0); MCHC 32.4 g/dL (28.0-37.0); MCV 85.7 fL (80.0-100.0); MONOCYTES 6.5 % (1.0-8.0); PHOSPHORUS 3.8 mg/dL (2.6-4.7); PLATELET COUNT 515 thou/uL (150-400); POLYS 75.1 % (36.0-66.0); RBC 2.69 mil/uL (4.20-5.00); RDW 15.5 % (10.5-14.5); WBC 14.1 thou/uL (4.0-11.0)
--- NOTE | 2021-05-15 08:27 | NUR ---
DR LUNSFORD INFORMED OF RASH AND HE DID SEE PT. PT IS LESS TEARFUL THIS AM.
--- NOTE | 2021-05-15 10:24 | NUR ---
Followup: recent right lower extremity fracture with surgical intervention. Pt with extreme class III obesity. Has been refusing nearly all meals x past 4 days. C/O pain. Has drank oral supplement. NPO for possible procedure however looks like no surgical intervention needed per Provider documentation. Recommend advance diet and continue oral supplement of glucerna all meals. Low nutrition risk with appropriate nutrition interventions in place
[2021-05-15] MEDS ORDERED: LORAZEPAM 1 MG T1 MG PO (14:34)
[2021-05-15] MEDS ORDERED: LIDOPATCH1 EACH TRANSDERM (14:34)
[2021-05-15] MEDS ORDERED: ALBUTEROL2.5 MG/0.5 INH (14:34)
[2021-05-15] MEDS ORDERED: BENADRYL25 MG PO (14:37)
[2021-05-15] MEDS ORDERED: AUGMENTIN 875-1 EACH PO (14:48)
[2021-05-15 15:15] VITALS: BP 130/73
--- NOTE | 2021-05-15 15:52 | NUR ---
Patient not stable for dc. Complaining of CP having emergent cardiac cath today. Updated 5N.
--- NOTE | 2021-05-15 16:30 | EKG ---
[address] [place] [address] ELECTROCARDIOGRAM REPORT Name: RANDAVANNA Room #: 206-P ADM IN M.R.#: [id number] Admission: 05/06/21 Attend Phys: Francisca Villegas MD Discharge: Date of : 65 Report #: [id number] [facility] Test Date: 2021-05-15 Test Time: 15:10:02 Pat Name: VANNA TOLENTINO Department: Room: 206 P Gender: F Snaker: DEBBIE : 1965 Requested By: Netta Dominguez Order Number: [id number] MD: Loki Watters Measurements Intervals [place] Rate: 94 P: 55 WI: 155 QRS: -23 QRSD: 114 T: 94 QT: 370 QTc: 463 Interpretive Statements Sinus rhythm Nonspecific repol abnormality, lateral leads ST elevation, consider inferior injury Compared to ECG 05/06/2021 09:57:16 Myocardial infarct finding now present Early repolarization now present ST (T wave) deviation now present Left bundle-branch block no longer present Electronically Signed On 05-15-2021 16:30:14 CDT by Loki Watters [email or web address] <ELECTRONICALLY SIGNED> By: Loki Watters MD, [facility] 05/15/21 1630 1510 1510 Loki Watters MD, [facility] /EPI
--- NOTE | 2021-05-15 16:37 | NUR ---
1416: PATIENT COMPLAINED OF LEG PAIN, ITCHING AND SOA. DR. OSCAR MADE AWARE. HYDROCODONE AND VISTERIL ALREADY GIVEN ORDERS RECIEVED TO GIVE SOLU-MEDROL AND LASIX. 1509: PATIENT STARTED COMPLAINING OF SUBSTERNAL CHEST PAIN / AND STARTED TO VOMIT. STAT EKG ORDERED. ELEAZAR MADE AWARE. ZOFRAN GIVEN. 1520: CELESTINA AT BEDSIDE, CARDIOLOGY CALLED. STAT TROPONIN ORDERED 1553: DR. RESENDIZ AT BEDSIDE, DECISION TO TAKE PATIENT TO EMERGENT CATH. 1604: SUPERVISOR RESIDENTIAL HERE TO TRANSPORT PATIENT TO CATH.
--- NOTE | 2021-05-15 18:49 | NUR ---
Report given to JEANNA Geronimo for room 242. No questions or conerns at time of discharge. patients belongings packed up and taken to icu
--- NOTE | 2021-05-15 19:46 | NUR ---
REPORT GIVEN TO SELIN JENNINGS IN ICU. PT TO BE ADMITTED TO ICU BED 242.
[2021-05-15 21:53] LABS: HEMATOCRIT 25.7 % (37.0-47.0); HEMOGLOBIN 8.2 gm/dL (12.0-15.0); MCH 27.5 pg (26.0-34.0); RBC 2.99 mil/uL (4.20-5.00); RDW 15.7 % (10.5-14.5); WBC 16.3 thou/uL (4.0-11.0)
[2021-05-15 22:03] LABS: CALCIUM 8.5 mg/dL (8.5-10.1); CREATININE 1.3 mg/dL (0.6-1.0); POTASSIUM 4.2 mmol/L (3.5-5.1)
[2021-05-16] VITALS (66 sets, daily range): BP systolic 81–152; BP diastolic 39–94
[2021-05-16 05:34] LABS: HEMATOCRIT 23.8 % (37.0-47.0); HEMOGLOBIN 7.8 gm/dL (12.0-15.0); MCHC 32.6 g/dL (28.0-37.0); MCV 85.8 fL (80.0-100.0); RBC 2.78 mil/uL (4.20-5.00); RDW 15.6 % (10.5-14.5); WBC 12.1 thou/uL (4.0-11.0)
[2021-05-16 06:19] LABS: ALBUMIN 1.7 g/dL (3.4-5.0); CALCIUM 8.1 mg/dL (8.5-10.1); CREATININE 1.3 mg/dL (0.6-1.0); PHOSPHORUS 4.9 mg/dL (2.5-4.9); POTASSIUM 4.1 mmol/L (3.5-5.1)
--- NOTE | 2021-05-16 06:51 | NUR ---
PATIENT WITH CHEST PAIN, ELEVATED TROPONIN, HAD A CARDIAC CATH AND IS NOW IN THE ICU. WILL NEED NEW ORDERS ONCE MEDICALLY STABLE.
--- NOTE | 2021-05-16 07:38 | NUR ---
Pt HAD EMERGENT CARDIAC CATH AND NOW IN ICU. WILL PLACE ON HOLD AND AWAIT NEW ORDERS TO RESUME
--- NOTE | 2021-05-16 07:41 | NUR ---
Pt was calm & pleasant, complained of pain on right leg, meds given with partial relief. Vital signs stayed within normal limits. Pt had good urine output and 3 semi liquid bowel movements during the shift. Will continue to monitor.
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
--- NOTE | 2021-05-16 09:20 | CATHLAB ---
[facility] [place] [address] INVASIVE PROCEDURE REPORT Name: VANNA TOLENTINO Room #: 242-P ADM IN M.R.#: [id number] Admission: 05/06/21 Attend Phys: Francisca Villegas MD Discharge: Date of : 65 Report #: [id number] THIS REPORT FOR: cc: [facility] - Clinic physician unknown [facility] - Clinic physician unknown Geronimo Echavarria MD ~ APPROVED REPORT Study performed: 05/15/2021 15:44:30 Patient Details Patient Status: In-Patient Room #: The patient is a 56 year-old female Event Personnel Denise Hanson RN RN, Tonya Peguero Monitor, Romina Pizarro RT(R)() Italia Maynard Jin Enrollment Coordinator, Isela Viveros RN vest baster Performed Art Access - R radial artery Left Heart Cath w/or w/o Coronaries [id number] [facility] Hemostasis with Hemoband Indication Abnormal ECG, Dyspnea, Unstable angina , Chest pain Risk Factors Obesity, Peripheral Vascular Disease, Hypercholesterolemia, Coronary Artery DiseaseHypertension, Diabetes Previous Procedures/Diagnoses Previous PCI Procedure Narrative The Right Wrist^ was infiltrated with subcutaneous anesthesia. A 6F RADIAL SHEATH sheath was inserted into the Right Radial Artery^. Coronary angiography was performed using coronary diagnostic catheters. The right coronary system was accessed and visualized with a JR4 catheter. The left coronary system was accessed and visualized with a JL4 catheter. The cardiac catheterization was performed via the right radial artery access. During the procedure, the patient developed V. fib requiring a shock with 200 J, converting to sinus rhythm. There was significant tortuosity in the right subclavian artery, resulting in difficulty in cannulating the RCA. The injection [facility] [address] [place] [address] INVASIVE PROCEDURE REPORT Name: RANDAVANNA Room #: 242-P [facility] IN .R.#: [id number] Admission: 05/06/21 Attend Phys: Francisca Villegas, Discharge: Date of : 65 Report #: [id number] was subselective at the ostium of the RCA. Intraoperative Conscious Sedation Sedation start time: 1608 Case end Time: 1700 Fluoro Time: 10.26 minutes Dose: DAP 68963.30 cGycm2 141.64 mGy Contrast Type and Amount: Visipaque 110 ml Coronary Angiography The patient's coronary anatomy is right dominant. Diagnostic Cath Left Main The left main artery is a large-caliber vessel, with mild disease at the ostium. LAD The LAD is a moderate-sized caliber vessel, traverses the anterior wall and wraps around the apex. There is mild diffuse disease in the proximal and mid segments, 20 to 30%. Diagonal 1 This is a moderate-sized caliber vessel with mild disease proximally. It divides into 2 branches, supplying the anterolateral wall. Diagonal 2 This is a small to moderate-sized caliber vessel with mild disease proximally. Circumflex The left circumflex artery is a small to moderate-sized caliber vessel, with mild disease proximally. OM1 This is a small caliber vessel, patent with no flow-limiting obstructions. Right Coronary The RCA is a dominant vessel with a severe occlusion in the mid segment, 95%. Left Ventriculography Left Ventriculography was not performed. Hemodynamics The aortic pressure is 118/75 mmHg with a mean of 91 mmHg. Conclusion 1. There are severe occlusions in the RCA. 2. There is mild disease in the LAD and diagonal arteries. 3. The left circumflex artery is a small caliber vessel. 4. Episode of V. fib requiring shock at 200 J, with conversion to sinus rhythm. 5. Recommend PCI of RCA via femoral artery access, as there is significant tortuosity of the right subclavian artery. [facility] [address] [place] [address] INVASIVE PROCEDURE REPORT Name: VANNA TOLENTINO Room #: 242-P ADM IN M.R.#: [id number] Admission: 05/06/21 Attend Phys: Francisca Villegas, Discharge: Date of : 65 Report #: [id number] 6. Will need GI evaluation for recent anemia, prior to initiation of antiplatelet therapy. <ELECTRONICALLY SIGNED> By: Geronimo Echavarria MD 05/16/21918 8 8 Geronimo Echavarria MD /JEREMY
--- NOTE | 2021-05-16 11:42 | 2DMMODE ---
[facility] [place] [address] 2 D/M-MODE ECHOCARDIOGRAM Name: VANNA TOLENTINO Room #: 242-P ADM IN M.R.#: [id number] Admission: 05/06/21 Attend Phys: Francisca Villegas MD Discharge: Date of : 65 Report #: [id number] THIS REPORT FOR: cc: [facility] - Clinic physician unknown [facility] - Clinic physician unknown Geronimo Echavarria MD ~ APPROVED REPORT Study performed: 05/16/2021 10:14:28 EXAM: Comprehensive 2D, Doppler, and color-flow Echocardiogram Patient Location: ICU Room #: 242 Status: routine BSA: 2.29 HR: 77 bpm BP: 139/61 mmHg Rhythm: NSR Other Information Study Quality: Technically Difficult Technically limited study due to body habitus, inability to position patient. Indications Chest Pain Hypertension/HDD STEMI, Morbid obesity 2D Dimensions IVSd: 9.87 (7-11mm) LVOT Diam: 24.56 (18-24mm) LVDd: 55.43 mm PWd: 10.28 (7-11mm) Ascending Ao: 26.35 (22-36mm) LVDs: 37.81 (25-40mm) Left Atrium: 37.15 (27-40mm) Aortic Root: 27.79 mm IVC: 16.00 mm Volumes Left Atrial Volume (Systole) Single Plane 4CH: 54.02 mL Aortic Valve AoV Peak Colton.: 1.72 m/s AO Peak Gr.: 11.78 mmHg LVOT Max P.41 mmHg [facility] [address] [place] [address] 2 D/M-MODE ECHOCARDIOGRAM Name: VANNA TOLENTINO Room #: 242-P [facility] IN M.R.#: [id number] Admission: 05/06/21 Attend Phys: Francisca Villegas, Discharge: Date of : 65 Report #: [id number] LVOT Max V: 0.92 m/s JAYDA Vmax: 2.55 cm2 Mitral Valve E/A Ratio: 1.4 MV Decel. Time: 210.41 ms MV E Max Colton.: 0.90 m/s MV A Colton.: 0.64 m/s MV PHT: 61.02 ms IVRT: 92.27 ms Pulmonary Valve PV Peak Colton.: 0.99 m/s PV Peak Gr.: 3.89 mmHg Pulmonary Vein P Vein S: 0.34 m/s P Vein A: 0.27 m/s P Vein D: 0.28 m/s P Vein A Dur.: 129.2 msec P Vein S/D Ratio: 1.21 Tricuspid Valve TR Peak Colton.: 1.87 m/s TR Peak Gr.: 13.98 mmHg Left Ventricle The left ventricle is normal size. There is normal LV segmental wall motion. There is normal left ventricular wall thickness. Left ventricular systolic function is normal. LVEF is 55%. The left ventricular diastolic function is abnormal. Right Ventricle The right ventricle is normal size. The right ventricular systolic function is normal. Atria The left atrium size is normal. The right atrium size is normal. Aortic Valve The aortic valve is normal in structure. No aortic regurgitation is present. There is no aortic valvular stenosis. Mitral Valve The mitral valve is normal in structure. There is no mitral valve regurgitation noted. No evidence of mitral valve stenosis. Tricuspid Valve [facility] [address] [place] [address] 2 D/M-MODE ECHOCARDIOGRAM Name: VANNA TOLENTINO Room #: 242-P [facility] IN M.R.#: [id number] Admission: 05/06/21 Attend Phys: Francisca Villegas, Discharge: Date of : 65 Report #: [id number] The tricuspid valve is normal in structure. Trace tricuspid regurgitation. Pulmonic Valve The pulmonary valve is normal in structure. There is no pulmonic valvular regurgitation. Great Vessels The aortic root is normal in size. IVC is normal in size and collapses >50% with inspiration. Pericardium There is no pericardial effusion. <Conclusion> The left ventricle is normal size. There is normal left ventricular wall thickness. Left ventricular systolic function is normal. The right ventricle is normal size. The left atrium size is normal. The aortic valve is normal in structure. There is no mitral valve regurgitation noted. Trace tricuspid regurgitation. <ELECTRONICALLY SIGNED> By: Geronimo Echavarria MD 05/16/21 1142 114 114 Geronimo Echavarria MD /INF
--- NOTE | 2021-05-16 14:09 | NUR ---
ASSUMED CARE OF PT AT 0700. PT ALERT AND ORIENTED. THIS AM DANA WONG AND DR. NÚÑEZ AT BEDSIDE AT 0730. PLAN IS FOR PT TO GO BACK TO [facility] AND HAVE STENT PLACED. AT BEDSIDE THIS AM AND CONSENT WAS SIGNED FOR PROCEDURE. MULTIPLE FAMILY MEMBERS HAVE BEEN IN AND OUT TO SEE PT, INCLUDING HER THREE DAUGHTERS. THIS AFTERNOON AT APPROXIMATELY 1330 PT'S MIDDLE DAUGHTER AND PATIENT EXPRESSED THAT THEY DID NOT FEEL COMFORTABLE WITH THE PROCEDURE. PT WAS VERY TEARFUL AND FEARFUL OF PROCEDURE. SHE ALSO VERBALIZED, I WAS IN A LOT OF PAIN DURING PROCEDURE AND I DONT WANT TO GO THROUGH THAT ANYMORE."
--- NOTE | 2021-05-16 16:25 | NUR ---
Cm notified by cm rn and bedside nurse, jim is requesting a transfer to [facility] for her cardiac/ cath/stent. cm faxed referral to [facility] and spoke with chandrika, they will review. chart copy requested in case able to accept. visited with patient at bedside she, they know me and this is scary and she all i have, want to transfer now you can wish me a happy birthday now per jim. Active listen and support during visit. Will cont following as needed for dc need.
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
[2021-05-17] VITALS (45 sets, daily range): BP systolic 89–135; BP diastolic 49–89
--- NOTE | 2021-05-17 04:26 | NUR ---
Pt was awaken from sleep by excruciating right leg pain, reposition offered no relief. Prn 25mg fentanyl was given with no relief, pt was crying out in pain. Nettie was called and a one time dose order of 50mg fentanyl was received. Pt was able to go back to sleep 30 minutes after. Will continue to monitor.
[2021-05-17 05:18] LABS: HEMATOCRIT 21.2 % (37.0-47.0); MCH 28.6 pg (26.0-34.0); MCHC 33.1 g/dL (28.0-37.0); MCV 86.5 fL (80.0-100.0); RBC 2.46 mil/uL (4.20-5.00); WBC 11.1 thou/uL (4.0-11.0)
[2021-05-17 05:44] LABS: ALBUMIN 1.6 g/dL (3.4-5.0); CALCIUM 7.6 mg/dL (8.5-10.1); CREATININE 1.1 mg/dL (0.6-1.0); PHOSPHORUS 3.6 mg/dL (2.5-4.9); POTASSIUM 3.3 mmol/L (3.5-5.1)
--- NOTE | 2021-05-17 13:13 | NUR ---
dallas was notified during unit rounds that she wants to be transferred to [facility]. dallas spoke with lashonda at [facility], they have denied at all [facility], no icu beds. Spoke with josafat at [facility], he took jim information and declined the need for cm to fax over face sheet r/t will not accept her, will call back per josafat.
[2021-05-17 14:56] LABS: OBSERVED RETIC COUNT 3.12 % (0.6-2.6)
[2021-05-17 15:04] LABS: % SATURATION 30 % (20-39); IRON 45 ug/dL (50-170); TIBC 151 ug/dL (250-450)
[2021-05-17 15:06] LABS: ALBUMIN 1.7 g/dL (3.4-5.0); DIRECT BILIRUBIN 0.2 mg/dL (<0.1-0.2); TOTAL BILIRUBIN 0.4 mg/dL (0.2-1.0); TOTAL PROTEIN 6.1 g/dL (6.4-8.2)
--- NOTE | 2021-05-17 19:34 | NUR ---
THIS RN WAS INFORMED BY REFUGIO IN CASE MANAGMENT THAT [facility] REFUSED TO TAKE HER PT. INFORMATION WAS RELAYED TO PT AT 1400. AT 1554 RN NOTICED PT HAD RUN OF V-TACH. PT WAS COMPLETELY ASYMPTOMATIC AT THIS TIME. DR OSCAR WAS NOTIFIED. DR NÚÑEZ INFORMED WELL. ORDER FOR CBC AND BMP GIVEN THIS EVENING. WILL CONTINUE TO MONITOR.
[2021-05-17 22:02] LABS: HEMOGLOBIN 8.2 gm/dL (12.0-15.0); MCH 27.1 pg (26.0-34.0); MCHC 31.4 g/dL (28.0-37.0); MCV 86.1 fL (80.0-100.0); RBC 3.02 mil/uL (4.20-5.00); RDW 16.6 % (10.5-14.5); WBC 10.4 thou/uL (4.0-11.0)
[2021-05-17 22:10] LABS: CALCIUM 7.7 mg/dL (8.5-10.1); CREATININE 1.2 mg/dL (0.6-1.0); POTASSIUM 3.6 mmol/L (3.5-5.1)
[2021-05-18] VITALS (67 sets, daily range): BP systolic 107–226; BP diastolic 60–115
--- NOTE | 2021-05-18 02:59 | NUR ---
PT INFORMED OF NPO AT MIDNIGHT ORDERS PENDING CARDIAC CATH IN THE MORNING.
--- NOTE | 2021-05-18 09:07 | NUR ---
Pt on phone with family, refusing to cooperate with turns or bedpan RN offered. Became irate when RN asked what patient wanted to do to have a bowel movement since she could not safely get out of bed. Daughter/family on phone cursing at RN telling her to "get the fuck out of my mom's room". RN spoke with charge nurse about incident, paged hospitalist to discuss transfer.
[2021-05-18 09:11] LABS: HEMATOCRIT 26.8 % (37.0-47.0); HEMOGLOBIN 8.4 gm/dL (12.0-15.0); MCHC 31.4 g/dL (28.0-37.0); MCV 85.9 fL (80.0-100.0); RBC 3.12 mil/uL (4.20-5.00); RDW 16.7 % (10.5-14.5); WBC 11.1 thou/uL (4.0-11.0)
[2021-05-18 09:20] LABS: ALBUMIN 1.6 g/dL (3.4-5.0); CALCIUM 7.7 mg/dL (8.5-10.1); CREATININE 1.1 mg/dL (0.6-1.0); PHOSPHORUS 3.8 mg/dL (2.6-4.7); POTASSIUM 3.7 mmol/L (3.5-5.1)
--- NOTE | 2021-05-18 12:18 | NUR ---
Paged Dr. Echavarria RE: moving heart cath to tomorrow - MD returned call stating he would be by this afternoon to discuss moving the procedure with the patient.
--- NOTE | 2021-05-18 14:51 | NUR ---
Spoke with wound care nurse about specialty bed ordering and options. Will discuss.
--- NOTE | 2021-05-18 14:57 | NUR ---
Dr. Echavarria at bedside speaking with patient about heart cath being delayed until tomorrow. If hemoglobin stable and patient willing, he will perform heart cath tomorrow.
[2021-05-19] VITALS (14 sets, daily range): BP systolic 146–169; BP diastolic 72–93
--- NOTE | 2021-05-19 03:21 | NUR ---
ASSUMED CARE OF PATIENT AT 1900. PATIENT TRANSFERRED TO SPECIALTY BED. ONE LARGE BOWEL MOVEMENT. REQUESTING MINIMAL PAIN MEDS. SLEEPING WELL THROUGH THE NIGHT. PLANS FOR CATH IN THE AM. PROGRESSING SLOWLY TOWARDS POC GOALS.
[2021-05-19 05:02] LABS: HEMATOCRIT 25.7 % (37.0-47.0); HEMOGLOBIN 8.4 gm/dL (12.0-15.0); MCHC 32.6 g/dL (28.0-37.0); RBC 2.98 mil/uL (4.20-5.00); RDW 16.1 % (10.5-14.5); WBC 11.3 thou/uL (4.0-11.0)
--- NOTE | 2021-05-19 06:56 | HC ---
[facility] [place] [address] CONSULTATION Name: VANNA TOLENTINO Room #: 242-P ADM IN M.R.#: [id number] Admission: 05/06/21 Attend Phys: Francisca Villegas MD Discharge: Date of : 65 Report #: [id number] THIS REPORT FOR: cc: [facility] - Clinic physician unknown [facility] - Clinic physician unknown Neymar Johnson MD ~ DATE OF SERVICE: 05/18/2021 REASON FOR CONSULTATION: Anemia. PHYSICIAN REQUESTING: Dr. Villegas. HISTORY OF PRESENT ILLNESS: The patient is a very pleasant 56-year-old female who reports that she has been anemic when she was having children in the past. May have taken iron pills in the past than recently. She had not been told she was anemic until this hospitalization. She does admit that she eats red meat maybe once or twice a month if even then. Note that on admit, her hemoglobin was 9.4. She has received 4 units of blood. Her current hemoglobin is 8.4. She reportedly has not had any evidence of bleeding. Her iron panel appears to show replete with ferritin of 324, iron of 45, TIBC of 151, B12 of I believe, 811, and folate of 9.8. We do note that her absolute retic count is low at 0.797, suggesting this is hypoproliferative. Her UA has revealed [id number]-md-wz blood. Her thyroid has been appropriate if I recall. The patient denies any obvious blood in the urine or stool. PAST MEDICAL HISTORY: Notable for recent tibial plateau fracture on the right with compartment syndrome and I believe she has had to have surgical intervention. She also has morbid obesity with a BMI of 50+, history of a recent postoperative infection. Also, recent STEMI with an RCA of 90% occluded, but she had ____ arrhythmia during the procedure and they were not able to stent it, they have planned medical management at this time. History of colon cancer in [address] [facility]. Note that GI plans an EGD, colonoscopy as an outpatient. She has a reported history of seizure disorder, also hypertension, hyperlipidemia and GERD. IMAGING: Here has included CT abdomen and pelvis that does not show any lymphadenopathy or hepatosplenomegaly if I understand correctly. Her chest imaging likewise has not revealed any abnormalities. She has had a nuclear med scan. PHYSICAL EXAMINATION: GENERAL: The patient appears her stated age. She is in the ICU. VITAL SIGNS: Height is 5 feet 4 inches, weight is variably reported at either 291 pounds or 368 pounds, I am not sure which is correct at this time. Blood pressure 136/81, pulse 74, respirations 23. MOOD: She is pleasant, conversant. [address] [address] CONSULTATION Name: VANNA TOLENTINO Room #: 242-P [facility] IN M.R.#: [id number] Admission: 05/06/21 Attend Phys: Francisca Villegas MD Discharge: Date of : 65 Report #: [id number] NEUROLOGIC: Face is symmetrical, moving extremities. LUNGS: Symmetric, unlabored. HEART: Appears regular rate. NECK: No enlarged lymph nodes in the supraclavicular or neck. ABDOMEN: Very obese. No abnormalities noted but it would be hard to tell; nontender. EXTREMITIES: Left leg without clubbing, cyanosis or edema. ASSESSMENT AND PLAN: 1. Anemia appears to be hypoproliferative with an inappropriately low absolute recent retic count at 0.797. I will need to correct this in the typed note from today. Erythropoietin level is pending. B12, iron and folate appear to be adequate. No obvious blood in the urine or stool. She may have been iron deficient to begin or had some preexisting health issue that may be a bit of anemia of chronic disease with recent issues on top of that. 2. Tibial plateau fracture with compartment syndrome. Defer to Orthopedics and others. 3. Morbid obesity. Defer to others. 4. NSTEMI with right coronary artery at 90%. Defer to Cardiology. 5. Health maintenance. Note that GI reports outpatient plans for EGD and colonoscopy. 6. History of colon cancer in [address] [facility]. Unclear whether she had genetic testing. 7. Reported history of seizure disorder. 8. History of hypertension. Per others. 9. History of hyperlipidemia. Per others. 10. Gastroesophageal reflux disease. Per others. MEDICATIONS: At this time include metoprolol 25 daily, gabapentin 200 b.i.d., atorvastatin 40 at bedtime, aspirin 81 daily, pantoprazole 40 b.i.d., albuterol sulfate, respiratory therapy, Zofran p.r.n., loperamide p.r.n., lidocaine patch daily, lorazepam p.r.n., trazodone 100 mg at night p.r.n. and a number of other medications. Also levetiracetam 500 mg b.i.d., budesonide 0.5 mg respiratory therapy b.i.d., tizanidine 2 mg t.i.d., clopidogrel 150 mg received one time. <ELECTRONICALLY SIGNED> By: Neymar Johnson MD 05/19/21 0656 0849 1335 Neymar Johnson MD /shirley
--- NOTE | 2021-05-19 11:24 | NUR ---
PATIENT A/O X4. WAS CRY FOR RIGHT LEG PAIN. FENTANYL 25 MCG GIVEN AT 0745. PATIENT WENT TO CLOTH DYE RANGE OPERATOR AT 0945.
--- NOTE | 2021-05-19 13:01 | CATHLAB ---
[facility] [place] [address] INVASIVE PROCEDURE REPORT Name: VANNA TOLENTINO Room #: 212-P ADM IN M.R.#: [id number] Admission: 05/06/21 Attend Phys: Francisca Villegas MD Discharge: Date of : 65 Report #: [id number] THIS REPORT FOR: cc: [facility] - Clinic physician unknown [facility] - Clinic physician unknown Geronimo Echavarria MD ~ APPROVED REPORT Study performed: 05/19/2021 09:41:46 Patient Details Patient Status: In-Patient Room #: 212 The patient is a 56 year-old female Event Personnel Geronimo Echavarria Conference Planning Manager, Romina Pizarro RT(R)() Monitor, Michelle Vasquez RTR Scrub, Denise Hanson RN credit rating inspector Performed Art Access - L femoral artery* TIAGO Place w/wo Plasty Single RCA 274893 Hemostasis w/ Mynx 62136 Initial Mod Sed Same Phys/QHP Gr5y 101024 57856 Mod Sed Same Phys/QHP Ea 651120 Indication Dyspnea, Unstable angina , Chest pain, The patient presents for staged PCI involving a severe occlusion in the mid RCA segment. Risk Factors Obesity, Peripheral Vascular Disease, Hypercholesterolemia, Coronary Artery DiseaseHypertension, Diabetes Previous Procedures/Diagnoses Previous PCI Procedure Narrative The Left Groin^ was infiltrated with 1% Lidocaine subcutaneous anesthesia. A PINNACLE 6FR Sheath #[id number] sheath was inserted into the LFA 6F^. Coronary angiography was performed using coronary diagnostic catheters. The right coronary system was accessed and visualized with a VISTA 6FR JR 4 #[id number] catheter. Closure device was deployed with a 6 Fr MYNXGRIP 6/7F #[id number]. The patient tolerated the procedure well and there were no complications associated with the procedure. [facility] [address] [place] [address] INVASIVE PROCEDURE REPORT Name: RANDAVANNA LOPEZ Room #: 212-P [facility] IN ..#: [id number] Admission: 05/06/21 Attend Phys: Francisca Villegas, Discharge: Date of : 65 Report #: [id number] Intraoperative Conscious Sedation Sedation start time: 10:55 Case end Time: 11:58 Fentanyl 100 mcg Versed 1.5 mg Fluoro Time: 7.40 minutes Dose: DAP 64782.70 cGycm2 1914 mGy Contrast Type and Amount: Visipaque 50 ml Coronary Angiography The patient's coronary anatomy is right dominant. Diagnostic Cath Right Coronary The RCA is a dominant vessel with a severe occlusion in the midsegment, 85%. Hemodynamics The aortic pressure is 150/86 mmHg with a mean of 112 mmHg. PCI Technique Lesion Percutaneous coronary intervention was performed on the mid right coronary artery. The lesion stenosis prior to intervention was 85% with ULISES 3 flow. A VISTA 6FR JR 4 #[id number] Guide Catheter was used to engage the ostium. A Luge Wire .014 x 182CM #[id number] Interventional Guidewire was used to cross the lesion. BALLOON DILATION A Balloon catheter TREK RX 2.5 X 12 #[id number] was inserted and inflated up to 12atm for 16seconds. STENT DEPLOYMENT A drug-eluting stent RESOLUTE ANSELMO RX 3.5 X 15 #[id number] was inserted and inflated up to 18.00atm for 19seconds. Final angiography reveals 0 % stenosis with ULISES 3 flow. Conclusion 1. PCI involving angioplasty and placement of a drug-eluting stent into the severe mid RCA segment. 2. There is a patent stent just beyond the de tala stenosis in the RCA, the stent is patent with mild restenosis. [facility] [address] [place] [address] INVASIVE PROCEDURE REPORT Name: VANNA TOLENTINO Room #: 212-P [facility] IN ..#: [id number] Admission: 05/06/21 Attend Phys: Francisca Villegas, Discharge: Date of : 65 Report #: [id number] 3. Recommend dual antiplatelet therapy and aggressive risk factor management. <ELECTRONICALLY SIGNED> By: Geronimo Echavarria MD 05/19/21 1301 1301 1301 Geronimo Echavarria MD /INF
--- NOTE | 2021-05-19 13:07 | NUR ---
WOUND CARE F/U; THE RIGHT LE WOUND DRESSING IS INTACT WITH A MODERATE AMOUNT OF DRAINAGE VISUALIZED THRU THE WINDOW OF THE DRESSING. SEROSANGINOUS DRAINAGE. THE PATIENT JUST RETURNED FROM A PROCEEDURE AND IS BEGINNING TO AWAAKEN. RECCOMMENDATIONS; CONTINUE CURRENT WOUND CARE ORDERS. RN PRESENT.
--- NOTE | 2021-05-19 14:37 | NUR ---
Pt now post cath with stenting and moved to CCU. CM visited with the pt and her dtr at bedside to discuss acute rehab options. [facility] is following along and can accept her Saturday if medically ready. Other options discussed such as [facility];however both pt/dtr indicate preference to go to [facility]. [facility] is close to where they live and easy for the dtr to visit. [facility] will need to get ins auth for readmission to [facility]. Will follow.
--- NOTE | 2021-05-19 14:53 | NUR ---
PER DISCHARAGE BRASS PICKLER, [facility] IS PATIENT'S 1ST CHOICE FOR REHAB STAY. WILL NEED AUTHORIZATION FOR REHAB STAY. CAN NOT REQUEST AUTH OVER WEEKEND. IF PATIENT IS READY FOR REHAB SATURDAY (MAY 22) WILL REQUEST AUTH FOR REHAB AT THAT TIME.
--- NOTE | 2021-05-20 01:05 | NUR ---
PT REMAIN ALERT AND ORIENT TIMES FOUR. RIGHT GROIN SITE, C/D/I, FREE OF HEMATOMA, OOZING AND REDNESS. RIGHT LEG ELEVATED ON BLANKET, 4+EDEMA REMAIN IN FOOT AND UP LEG. AQUA-CELL DRESSING INTACT. DENIES CP. HYDOCONDONE GIVEN FOR LEG PAIN. LARA INTACT WITH DK YELLOW UO WITH SEDIMENTS NOTED. RIGHT UPPER ARM WAS PULLED HALF WAY OUT, WOULD NOT FLUSH AND PT STATE THAT IT HURT WITH ATTEMPTS TO FLUSH. SR PER MONITOR. VSS. AFEBRILE. SLOW PROGRESS TOWARDS DC GOALS. WILL CONTINUE TO MONITOR.
[2021-05-20 03:37] VITALS: BP 144/77
[2021-05-20 04:23] LABS: ALBUMIN 1.7 g/dL (3.4-5.0); CALCIUM 7.7 mg/dL (8.5-10.1); CREATININE 1.2 mg/dL (0.6-1.0); POTASSIUM 3.7 mmol/L (3.5-5.1); TOTAL BILIRUBIN 0.3 mg/dL (0.2-1.0); TOTAL PROTEIN 6.2 g/dL (6.4-8.2)
[2021-05-20 04:34] LABS: HEMATOCRIT 26.6 % (37.0-47.0); HEMOGLOBIN 8.8 gm/dL (12.0-15.0); MCH 28.2 pg (26.0-34.0); MCHC 33.2 g/dL (28.0-37.0); RBC 3.13 mil/uL (4.20-5.00); RDW 16.1 % (10.5-14.5); WBC 10.8 thou/uL (4.0-11.0)
--- NOTE | 2021-05-20 05:52 | NUR ---
ATTEMPTED TO PUT ANOTHER IV IN LEFT HAND, NOT SUCCESSFUL. POSSIBLE DC TO [facility] TODAY.
[2021-05-20] MEDS ORDERED: BAYER CHEWABLE81 MG PO (07:31)
[2021-05-20] MEDS ORDERED: CLOPIDOGREL75 MG PO (07:31)
[2021-05-20] MEDS ORDERED: METOPROLOL SUCC25 M1 PO (07:31)
[2021-05-20 08:00] VITALS: BP 136/68
[2021-05-20 12:00] VITALS: BP 144/68
--- NOTE | 2021-05-20 13:01 | EKG ---
[address] [place] [address] ELECTROCARDIOGRAM REPORT Name: VANNA TOLENTINO Room #: 212- ADM IN M.R.#: [id number] Admission: 05/06/21 Attend Phys: Francisca Villegas MD Discharge: Date of : 65 Report #: [id number] [facility] Test Date: 2021-05-20 Test Time: 08:08:38 Pat Name: VANNA TOLENTINO Department: Room: 212 P Gender: F Well Logger: MINAL : 1965 Requested By: Geronimo Echavarria Order Number: [id number] MD: Reyes Porter Measurements Intervals Brady Rate: 76 P: 60 SC: 170 QRS: -29 QRSD: 121 T: -23 QT: 433 QTc: 487 Interpretive Statements Sinus rhythm Left bundle branch block Baseline wander in lead(s) V2,V5 Compared to ECG 05/15/2021 15:10:02 Left bundle-branch block now present Early repolarization no longer present ST (T wave) deviation no longer present Myocardial infarct finding no longer present Electronically Signed On 05-20-2021 13:01:19 CDT by Reyes Porter [email or web address] <ELECTRONICALLY SIGNED> By: Reyes Porter MD 05/20/21 1301 0808 Reyes Porter MD /EPI
[2021-05-20 15:39] VITALS: BP 152/85
--- NOTE | 2021-05-20 17:14 | NUR ---
ASSESSMENT CHARTED - MEDS PER ALETA - SCARLETT DIET AND FLUIDS. NO CO'S OF PAIN OR NAUSEA. PT UP TO THE CHAIR THIS SHIFT WITH USE OF WALKER - PT NON WB ON R LEG USES WALKER AND HOPS FROM CHAIR TO BED. PT INCONTINENT OF STOOL X 2 IN THE CHAIR TODAY - LARGE AMOUNT LIQUID STOOL . LARA WITH DARK MANUEL / SLIGHTLY BLOODY LOOKING URINE AT TIMES. NO CO'S AT THE PRESENT TIME.
[2021-05-21 05:58] VITALS: BP 146/85
[2021-05-21 07:00] VITALS: BP 142/71
--- NOTE | 2021-05-21 08:10 | NUR ---
RECEIVED PATIENT AT 1900H.PATIENT IS ALERT AND ORIENTED X4.ON ROOM AIR BREATHING SPONTANEOUSLY.WITH LARA CATHETER DRAINING DARK MANUEL URINE.ALL NEEDS ATTENDED.FOR CONTINOUS MONITORING.
[2021-05-21 11:03] VITALS: BP 159/98
[2021-05-21 16:40] VITALS: BP 141/77
--- NOTE | 2021-05-21 19:17 | NUR ---
ASSESSMENT CHARTED - MEDS PER OCT - GIVEN LOPERIMIDE THIS EVEING FOR MULTIPLE STOOLS PT HAD THIS AFTERNOON - PT STATES WHEN SHE HAS A STOOL THAT IT KENDALL BADLY - CREAM APPLIED TO HELP S A BARRIER. PT WITH CO'S OF PAIN IN R LOWER EXTREMITY GIVEN HYDROCODONE REQUESTED WITH MOD RELIEF. SCARLETT SMALL AMOUNTS OF DIET - FLUID INTAKE ADEQUATE - DRESSINGS TO R LOWER EXREMITY INTACT. PT CONTIUES WITH NO IV ACCESS SHE REFUSES TO BE STUCK. NO CO'S AT THE PRESENT TIME.
[2021-05-21 20:36] VITALS: BP 155/78
--- NOTE | 2021-05-22 03:42 | NUR ---
SEVERAL STOOLS TONIGHT;LOPERAMIDE GIVEN.PAIN WELL CONTROLLED.ABLE TO TURN SELF. MONITOR SHOWS SR.POC CONTINUED.
[2021-05-22 08:30] VITALS: BP 142/76
[2021-05-22 11:00] VITALS: BP 147/98
[2021-05-22] MEDS ORDERED: VISTARIL 25 MG25 M1 PO (11:25)
[2021-05-22] MEDS ORDERED: GABAPENTIN 100100 MG PO (11:25)
[2021-05-22] MEDS ORDERED: TRAZODONE HCL100 MG PO (11:25)
[2021-05-22] MEDS ORDERED: CULTURELLE KID1 EAC1 PO (12:39)
[2021-05-22] MEDS ORDERED: FIRVANQ50 MG/1 ML PO (12:39)
== END 2021-05-22 17:08 | DRG 853 ==
LOC: 2N 10:33 → ICU 12:08 → 2N 12:08 → ICU 05-15 18:45 → 2N 05-19 12:17
PROVIDERS: Hospitalist; Internal Medicine Cardiovascular Disease; Internal Medicine Hematology & Oncology; Internal Medicine Nephrology; Nurse Practitioner; Nurse Practitioner Family; Specialist; ADMIT Internal Medicine; ATTEND Internal Medicine
PROC: 05HC33Z Insertion of Infusion Device into Left Basilic Vein, Percutaneous Approach (ICD-10-PCS; principal; 2021-05-11)
PROC: 30233N1 Transfusion of Nonautologous Red Blood Cells into Peripheral Vein, Percutaneous Approach (ICD-10-PCS; 2021-05-13)
PROC: 4A023N7 Measurement of Cardiac Sampling and Pressure, Left Heart, Percutaneous Approach (ICD-10-PCS; 2021-05-15)
PROC: B211YZZ Fluoroscopy of Multiple Coronary Arteries using Other Contrast (ICD-10-PCS; 2021-05-15)
PROC: B211YZZ Fluoroscopy of Multiple Coronary Arteries using Other Contrast (ICD-10-PCS; 2021-05-19)
PROC: 4A023N7 Measurement of Cardiac Sampling and Pressure, Left Heart, Percutaneous Approach (ICD-10-PCS; 2021-05-19)
PROC: 027034Z Dilation of Coronary Artery, One Artery with Drug-eluting Intraluminal Device, Percutaneous Approach (ICD-10-PCS; 2021-05-19)
DX: A41.9 Sepsis, unspecified organism (principal); R57.1 Hypovolemic shock; I21.3 ST elevation (STEMI) myocardial infarction of unspecified site; S82.141A Displaced bicondylar fracture of right tibia, initial encounter for closed fracture; T79.A0XA Compartment syndrome, unspecified, initial encounter; N17.9 Acute kidney failure, unspecified; E87.1 Hypo-osmolality and hyponatremia; N13.6 Pyonephrosis; G93.40 Encephalopathy, unspecified; L03.115 Cellulitis of right lower limb; D62 Acute posthemorrhagic anemia; Z68.43 Body mass index [BMI] 50.0-59.9, adult; E78.5 Hyperlipidemia, unspecified; I25.10 Atherosclerotic heart disease of native coronary artery without angina pectoris; E78.00 Pure hypercholesterolemia, unspecified; E66.01 Morbid (severe) obesity due to excess calories; K21.9 Gastro-esophageal reflux disease without esophagitis; I95.9 Hypotension, unspecified; I12.9 Hypertensive chronic kidney disease with stage 1 through stage 4 chronic kidney disease, or unspecified chronic kidney disease; G40.909 Epilepsy, unspecified, not intractable, without status epilepticus; F41.9 Anxiety disorder, unspecified; G89.4 Chronic pain syndrome; R74.01 Elevation of levels of liver transaminase levels; R33.9 Retention of urine, unspecified; N18.32 Chronic kidney disease, stage 3b; E87.6 Hypokalemia; Z88.6 Allergy status to analgesic agent; Z91.040 Latex allergy status; Z91.013 Allergy to seafood; Z87.891 Personal history of nicotine dependence; Z95.5 Presence of coronary angioplasty implant and graft; Z83.3 Family history of diabetes mellitus; Z82.49 Family history of ischemic heart disease and other diseases of the circulatory system; Z80.42 Family history of malignant neoplasm of prostate; Z85.038 Personal history of other malignant neoplasm of large intestine; Z79.82 Long term (current) use of aspirin; Z79.899 Other long term (current) drug therapy; X58.XXXA Exposure to other specified factors, initial encounter; Y93.89 Activity, other specified; Y92.89 Other specified places as the place of occurrence of the external cause; Y99.8 Other external cause status
CPT/HCPCS: 10078; 10081; 10194; 27000; 85076

== ENCOUNTER 2021-05-15 16:06 | Inpatient (IN) | payer OTHER ==
[~2021-05-15] VITALS: Ht 162.6 cm; Wt 177.8 kg
--- NOTE | ~2021-05-15 | H ---
[facility] [place] [address] HISTORY AND PHYSICAL Name: VANNA TOLENTINO Room #: 511-P ADM IN M.R.#: [id number] Admission: 05/22/21 Attend Phys: Chi Justin MD Discharge: Date of : 65 Report #: [id number] THIS REPORT FOR: cc: [facility] - Clinic physician unknown [facility] - Clinic physician unknown Chi Justin MD ~ DATE OF SERVICE: 05/22/2021 ADDENDUM HISTORY OF PRESENT ILLNESS: Please see the full admission history and physical. She was previously admitted here in the rehabilitation [facility] and has now been readmitted. She had a right tibial plateau fracture, underwent ORIF with subsequent fasciotomy for right lower extremity compartment syndrome. She is nonweightbearing on the right lower extremity. She has had a non-ST elevation myocardial infarction with cardiac stenting on 05/19/2021. She has been readmitted now for her inpatient rehabilitation stay. There is note of an apparent allergic reaction with associated hives and Cardiology reevaluated her regarding chest discomfort. The patient was seen prior to this. Past medical history, social history, medications, and allergies are all documented. She does have multiple allergies as noted. REVIEW OF SYSTEMS: Please see the full 14-point review of systems. She did have a rapid response team call with noted treatment for hives as noted above. When I had seen her, she had been awake, alert and oriented. PHYSICAL EXAM: HEENT: Normocephalic. CHEST: Clear. CARDIAC: Regular rate and rhythm. ABDOMEN: She is morbidly obese. Bowel sounds positive. EXTREMITIES: Right lower extremity with dressing clean, dry and intact. Some pedal edema. She is able to move that foot at least a 3+. Left lower extremity, she is morbidly obese, but strength is probably a grade 3+/5. She has functional range of motion of both upper extremities with fashion consultant selling equal. She has been able to do some very basic sit to stand with min assist prior to admission to the rehabilitation [facility]. ASSESSMENT: 1. Right tibial plateau fracture, status post open reduction internal fixation 05/01/2021. 2. Right lower extremity compartment syndrome, status post fasciotomy 05/02/2021, nonweightbearing. 3. Non-ST elevation myocardial infarction, right coronary artery 90% stenosis, status post cardiac catheterization with stenting 05/19/2021. [address] [address] HISTORY AND PHYSICAL Name: VANNA TOLENTINO Room #: 511-P [facility] IN .R.#: [id number] Admission: 05/22/21 Attend Phys: Chi Justin MD Discharge: Date of : 65 Report #: [id number] 4. Clostridium difficile positive. 5. Anemia. 6. History of colon cancer. 7. Chronic pain syndrome. 8. Morbid obesity. 9. Hypertension. 10. Gastroesophageal reflux disease. 11. History of seizure disorder. PLAN: The patient has been admitted for acute in-hospital inpatient rehabilitation. The hospitalist service is involved as well as Cardiology and they are assisting with this apparent allergic reaction. She also has multiple consultants that have been following with wound care, Hematology, GI. Neuropsychology is consulted. She is nonweightbearing on that right lower extremity. The goal is to maximize her functional independence, so she can hopefully return back to her prior living situation. Goal is for her to hopefully become as modified independent as possible within her weightbearing precautions. Again, we will have the multiple customs consultant physicians involved. Agree with the documentation as noted. By: [id number] 1414 Chi Justin MD /nt
[~2021-05-15 16:06] MED LIST changes: +ALBUTEROL2.5 MG/0.5 INH; +AUGMENTIN 875-1 EACH PO; +BENADRYL25 MG PO; +LIDOPATCH1 EACH TRANSDERM; +LORAZEPAM 1 MG T1 MG PO
[2021-05-20] MEDS ORDERED: BAYER CHEWABLE81 MG PO (07:31)
[2021-05-20] MEDS ORDERED: CLOPIDOGREL75 MG PO (07:31)
[2021-05-20] MEDS ORDERED: METOPROLOL SUCC25 M1 PO (07:31)
[2021-05-22] MEDS ORDERED: GABAPENTIN 100100 MG PO (11:25)
[2021-05-22] MEDS ORDERED: VISTARIL 25 MG25 M1 PO (11:25)
[2021-05-22] MEDS ORDERED: TRAZODONE HCL100 MG PO (11:25)
[2021-05-22] MEDS ORDERED: FIRVANQ50 MG/1 ML PO (12:39)
[2021-05-22] MEDS ORDERED: CULTURELLE KID1 EAC1 PO (12:39)
--- NOTE | 2021-05-22 16:26 | NUR ---
Chart review. She been on acute rehab in the past, ORIF tib, with nwb status. When back to acute hospital r/t cardiac and going to go back to acute rehab today. Prior to hospital, she was living in extended stay motel with her older daughter mechelle and younger daughter. Prior to admission independent. No dme, manage own medication. See at [facility]. No hh or rehab in the past. Will cont following as needed for dc needs.
[2021-05-22 17:39] VITALS: BP 138/72
--- NOTE | 2021-05-22 19:32 | NUR ---
PT ARRIVED TO ROOM, CHILLING AND SHAKING, C/O ABD PAIN. DURING ADMISSION ASSESSMENT, PT HAD MODERATE LOOSE INCONT BM. NOTED RLE INCISIONS HAVE LONG-TERM AQUACEL DRESSING INTACT AT PRESENT TIME, AND PT C/O ABD PAIN /. AND RLE PAIN /. TEMP 100.2 AND THIS NOTED TO ONCOMING SHIFT.
--- NOTE | 2021-05-22 23:43 | NUR ---
PATIENT IS ALER AND ORIENTED. SHE IS A MAX ASSIST WITH CARE. ABLE TO VERBALISE NEEDS. SHE IS ON CONTACT ISOLATION FOR C-DIFF AND CONTACT PRECAUTION MEASURES IN PLACE.SHE HAS A LARGE LOOSE STOOL . SHE IS ON ABT VANCO. NO ADVERSE REACTION NOTED AT THIS TIME. BS ACTIVE X 4 QUADS, SHE C/O ABD ACHE PRN WITH FEVER. PRN TYLENOL GIVEN WITH SOME GOOD EFFECT. LUNGS ARE CLEAR ON AUSCULTATION. DRESSING TO HER RT LOWER LEG DUE TO FRACTURE. CONTNIUE CARE AND MONITOR
[2021-05-23 04:51] LABS: HEMATOCRIT 28.7 % (37.0-47.0); HEMOGLOBIN 9.5 gm/dL (12.0-15.0); MCH 28.1 pg (26.0-34.0); MCHC 33.1 g/dL (28.0-37.0); MCV 84.9 fL (80.0-100.0); RBC 3.38 mil/uL (4.20-5.00); RDW 17.1 % (10.5-14.5); WBC 14.7 thou/uL (4.0-11.0)
[2021-05-23 05:09] LABS: CALCIUM 8.2 mg/dL (8.5-10.1); CREATININE 1.2 mg/dL (0.6-1.0); POTASSIUM 3.6 mmol/L (3.5-5.1)
--- NOTE | 2021-05-23 07:23 | NUR ---
ZEINAB HAS ADVERSE REACTION AND HIVES NOTED. CALL TO SENIOR SALES ADMINISTRATOR LEEANNE AND MAX FOR IV 40MG SOLU MEDROL, IV BENEDRYL 5OMG, IV PEPCID 2OMG ONETIME. CALL TO APERTURE MASK ETCHER AND AND RAPID RESPONSE TEAM . PT IS STABLE AT THIS TIME . REPORT GIVEN TO ONCOMING RN.NO SOA, SAT @ 97% ON 2L. CONTINUE CARE AND MONITOR
[2021-05-23 07:33] LABS: HEMATOCRIT 31.1 % (37.0-47.0); HEMOGLOBIN 9.9 gm/dL (12.0-15.0); MCH 27.5 pg (26.0-34.0); MCHC 31.7 g/dL (28.0-37.0); MCV 86.6 fL (80.0-100.0); RBC 3.6 mil/uL (4.20-5.00); RDW 16.7 % (10.5-14.5); WBC 18.1 thou/uL (4.0-11.0)
[2021-05-23 07:45] LABS: CALCIUM 7.9 mg/dL (8.5-10.1); CREATININE 1.3 mg/dL (0.6-1.0)
[2021-05-23 08:00] VITALS: BP 92/51
--- NOTE | 2021-05-23 08:05 | NUR ---
TRADING ASSISTANT CALLED THIS MORNING FOR CP. SEE FLOWSHEET FOR DETAILS.
--- NOTE | 2021-05-23 09:01 | EKG ---
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: PHILIP : 1965 Requested By: Forrest Bell Order Number: [id number] MD: Kulwant Williamson Measurements Intervals [place] Rate: 90 P: 53 WY: 141 QRS: -34 QRSD: 123 T: 2 QT: 391 QTc: 479 Interpretive Statements Sinus rhythm Left bundle branch block Compared to ECG 05/20/2021 08:08:38 No significant changes Electronically Signed On 05-23-2021 9:01:08 CDT by Kulwant Williamson [email or web address] <ELECTRONICALLY SIGNED> By: Kulwant Williamson MD, [facility] 05/23/21900 0 0 Kulwant Williamson MD, FACC /EPI
--- NOTE | 2021-05-23 09:35 | NUR ---
WOUND CARE F/U; I WAS ASKED TO SEE THIS PATIENT PATIENT WHO IS CURRENTLY UNDER THE CARE OF DR NJ AND DR FINE. THE PATIENT HAD A RAPID RESPONSE CALLED THIS MORNING. THERE IS A HEALING SURGICAL WOUND TO THE RIGHT LE. THE DRESSING TODAY HAS NO VISABILE DRAINAGE IN THE DRESSING WINDOW. THERE IS NO ERYTHEMA. THERE IS NO VISIBLE EVIDENCE THE WOUND IS INFECTED. THE DRESSING IS ORDERED TO BE CHANGED M/W/F PRN AND IT HAS BEEN ON FOR OVER 24 HOURS.
--- NOTE | 2021-05-23 12:36 | NUR ---
Team meeting, recommendation: max assist for bathing, dependent for lower body dressing. Mod assist with supine to sitting. NWB right lower ext. Re team.
--- NOTE | 2021-05-23 13:46 | NUR ---
Nutrition: pt admitted with right tibia fx, S/P surgical intervention. Hx chronic narcotic use, colostomy, HTN, extreme class 3 obesity. Transferred back to rehab following need to transfer to acute for AMS, syncope, anxiety. Appetite has been variable, overall poor/fair. PO intake refusal to 100% documented. Likes ensure and was ordered on trays, will continue TID til po trends improve. Noted Vitamin D 24.4 on 05/06. REC supplementation. C diff +. Wound care following for healing surgical wound to RLE. Highly variable weights 290-350#, difficult to determine accuracy. Place as low risk with interventions in place.
--- NOTE | 2021-05-23 14:56 | NUR ---
Nutrition: Vitamin D 24.4. REC order vitamin D supplementation
[2021-05-23 19:54] VITALS: BP 128/70
--- NOTE | 2021-05-23 20:03 | NUR ---
PT WAS IN A RAPID RESPONSE CALL WHEN THIS NURSE ARRIVED AT WORK THIS MORNING. PT HAD URTICARIA AFTER HS NURSE GAVE MORNING MEDICATIONS. RR WAS CALLED. IV SOLUMEDROL, IV BENADRYL AND IV PEPCID GIVEN WITH NOTED RELIEF. PT C/O PAIN TO ABDOMEN D/T C-DIFF. PT DRESSINGS TO RLE ARE LOOSE, WOUND CARE TO CHANGE TOMORROW. WILL CONTINUE TO MONITOR.
--- NOTE | 2021-05-24 01:27 | NUR ---
ASSUMED CARE OF PT AT 1940 ON 05/23/21. PT IS A&O4. IS ON ROOM AIR. IS STABLE. REPORTS PAIN IN RLE THAT IS BEING MANAGED WITH PAIN MEDS & OTHER THERAPUETIC TECHNIQUES. ELEVATED ON PILLOW. DRSG INTACT. LIDOCAINE PATCH REMOVED. EDEMA NOTED. IS ABLE TO TURN SELF IN BED. IS UP WITH MAX ASSIST OF 2, GB, WALKER TO BEDSIDE COMMODE. FALL PRECAUTIONS & HOURLY ROUNDING CONTINUED THIS SHIFT. LABS & VITALS REVIEWED. PT REMAINS IN ISOLATION PRECAUTIONS FOR C-DIFF. CONTINUES ON 24 HOUR URINC ACID COLLECTION, WHICH BEGAN ON 05/23/21 AT 1030 & IS TO END TODAY AT 1030. KEPT ON ICE IN PT'S BATHROOM. PT IS CURRNTLY SLEEPING. CALL LIGHT WITHIN REACH. WILL CONTINUE TO MONITOR.
[2021-05-24 07:15] VITALS: BP 121/63
[2021-05-24 09:55] VITALS: BP 121/63
[2021-05-24 14:01] LABS: HEMATOCRIT 28.6 % (37.0-47.0); HEMOGLOBIN 9.4 gm/dL (12.0-15.0)
[2021-05-24 14:22] LABS: URINE CREATININE 194.41 mg/dL
[2021-05-24] MEDS ORDERED: BAYER CHEWABLE81 MG PO ×3 (14:42→14:52)
[2021-05-24] MEDS ORDERED: ZANAFLEX4 MG PO (14:42)
[2021-05-24] MEDS ORDERED: LOPERAMIDE 2 MG2 M1 PO (14:42)
[2021-05-24] MEDS ORDERED: PROTONIX 20 MG20 MG PO (14:42)
[2021-05-24] MEDS ORDERED: PROBIOTIC1 EAC1 PO (14:42)
[2021-05-24] MEDS ORDERED: LORATIDINE 10 M10 M1 PO (14:42)
[2021-05-24] MEDS ORDERED: BENADRYL ALLERG25 MG PO (14:42)
[2021-05-24] MEDS ORDERED: CLOPIDOGREL75 MG PO ×3 (14:42→14:52)
[2021-05-24] MEDS ORDERED: SOLU-MEDRO125 MG/23 IV PUSH (14:45)
[2021-05-24] MEDS ORDERED: METRO IV 5500 MG/100 IV (14:46)
[2021-05-24] MEDS ORDERED: VITAMIN D21250 MCG PO (14:49)
== END 2021-05-24 17:59 | disposition home or self-care (01) | DRG 922 ==
PROVIDERS: Nurse Practitioner; ADMIT Physical Medicine & Rehabilitation; ATTEND Physical Medicine & Rehabilitation
DX: T79.A21A Traumatic compartment syndrome of right lower extremity, initial encounter (principal); I21.3 ST elevation (STEMI) myocardial infarction of unspecified site; G72.81 Critical illness myopathy; S82.141A Displaced bicondylar fracture of right tibia, initial encounter for closed fracture; Z68.44 Body mass index [BMI] 60.0-69.9, adult; A04.72 Enterocolitis due to Clostridium difficile, not specified as recurrent; N17.9 Acute kidney failure, unspecified; D62 Acute posthemorrhagic anemia; K92.2 Gastrointestinal hemorrhage, unspecified; I25.10 Atherosclerotic heart disease of native coronary artery without angina pectoris; E78.00 Pure hypercholesterolemia, unspecified; N18.9 Chronic kidney disease, unspecified; G89.4 Chronic pain syndrome; K21.9 Gastro-esophageal reflux disease without esophagitis; Z95.5 Presence of coronary angioplasty implant and graft; G40.909 Epilepsy, unspecified, not intractable, without status epilepticus; E66.01 Morbid (severe) obesity due to excess calories; Z85.038 Personal history of other malignant neoplasm of large intestine; Z88.8 Allergy status to other drugs, medicaments and biological substances; Z88.6 Allergy status to analgesic agent; Z91.040 Latex allergy status; Z91.013 Allergy to seafood; Z79.82 Long term (current) use of aspirin; Z79.899 Other long term (current) drug therapy; W18.39XA Other fall on same level, initial encounter; Y93.89 Activity, other specified; Y92.89 Other specified places as the place of occurrence of the external cause; Y99.8 Other external cause status
CPT/HCPCS: 10112

== ENCOUNTER 2021-05-24 14:55 | Inpatient (IN) | payer OTHER ==
[~2021-05-24] VITALS: Ht 190.5 cm; Wt 174.4 kg
--- NOTE | ~2021-05-24 | HC ---
[facility] [place] [address] CONSULTATION Name: VANNA TOLENTINO Room #: 212-[facility] M.R.#: [id number] Admission: 05/24/21 Attend Phys: Netta Dominguez MD Discharge: 05/29/21 Date of : 65 Report #: [id number] THIS REPORT FOR: cc: [facility] - Clinic physician unknown [facility] - Clinic physician unknown Romeo Treadwell MD ~ DATE OF SERVICE: 05/26/2021 CHIEF COMPLAINT: Right leg surgical wound. HISTORY OF PRESENT ILLNESS: This is a 56-year-old black female whom we have been following for surgical wound to the right pretibial region after she underwent fasciotomy for compartment syndrome. The patient initially had been transferred to acute rehab; however, she within the first day developed altered mental status requiring a transfer back to the acute care unit. A CT scan of the head and chest were negative. We have been asked to follow the patient for the wound on her right lower extremity. The patient denies any other new wounds. PAST MEDICAL HISTORY: Significant for anemia, colon cancer, chronic pain syndrome, morbid obesity, hypertension, gastroesophageal reflux disease, recent right tibial plateau fracture with subsequent compartment syndrome requiring a fasciotomy. Coronary artery disease with recent cardiac stenting. CURRENT MEDICATIONS: Multiple, I reviewed the patient's medication list. DRUG ALLERGIES: MORPHINE, OXYCODONE, VANCOMYCIN, LATEX, COCONUT OIL. SOCIAL HISTORY: The patient does not smoke or drink alcohol. FAMILY HISTORY: Not pertinent to current medical condition. REVIEW OF SYSTEMS: CONSTITUTIONAL: The patient denies fever or chills. NEUROLOGIC: The patient had an episode of altered mental status, which is now resolved. EYES: No complaints. EARS, NOSE AND THROAT: No complaints. CARDIAC: The patient denies chest pain, palpitations, peripheral edema. RESPIRATORY: The patient denies shortness of breath, cough, wheezes. GASTROINTESTINAL: The patient denies nausea, vomiting, abdominal pain. GENITOURINARY: The patient denies urgency or frequency. MUSCULOSKELETAL: No complaints. SKIN: There is a surgical wound in the right lower extremity. PHYSICAL EXAMINATION: [facility] [address] [place] [address] CONSULTATION Name: VANNA TOLENTINO Room #: 212-[facility] ..#: [id number] Admission: 05/24/21 Attend Phys: Netta Dominguez MD Discharge: 05/29/21 Date of : 65 Report #: [id number] VITAL SIGNS: Stable. The patient is afebrile. GENERAL: This is alert and oriented x3, pleasant black female who is in absolutely no distress. HEENT: Normocephalic, atraumatic. Mucous membranes moist. Pupils are round. Sclerae white. NECK: Without JVD. LUNGS: Clear. HEART: Regular. ABDOMEN: Soft, nontender. EXTREMITIES: The patient moves all extremities without difficulty. The patient has trace to 1+ edema in bilateral lower extremities. Fresh surgical dressings are in place in the right lower extremity. There are no signs of erythema, warmth, or cellulitis. Distal pulses are intact. NEUROLOGIC: Cranial nerves II-XII are grossly intact. Motor and sensory grossly intact. IMPRESSION: 1. Surgical wound, right lower extremity secondary to fasciotomy for compartment syndrome. Overall stable. 2. Generalized debility. 3. History of coronary artery disease. 4. History of seizure disorder. PLAN: We will continue with silver alginate border dressings to the right lower extremity changing every 5-7 days. The patient will utilize physical and occupational therapy for strengthening. We will continue to maximize the patient's oral protein supplementation for healing. We will continue all other current medications. By: [id number] [id number] Romeo Treadwell MD /nt
--- NOTE | ~2021-05-24 | PLAN ---
[facility] [place] [address] REHAB UNIT PLAN OF CARE Name: VANNA TOLENTINO Room #: 212-P ADM IN M.R.#: [id number] Admission: 05/24/21 Attend Phys: Netta Dominguez MD Discharge: Date of : 65 Report #: [id number] THIS REPORT FOR: cc: [facility] - Clinic physician unknown [facility] - Clinic physician unknown Chi Justin MD ~ DATE OF SERVICE: 05/24/2021 PROGRESS NOTE/OVERALL PLAN OF CARE HISTORY OF PRESENT ILLNESS: The patient is seen back today in followup. She was alert, pleasant, in no obvious distress. Temperature 97.5, pulse 86, respirations 20, blood pressure 128/70. Her right lower extremity dressings are in place. Appear dry. No focal calf swelling. She has been working in therapies with contact guard, sit to stand and she had 2-feet mod assist with a front-wheeled walker. In occupational therapy, lower body dressing has been max assist. She is on a specialty mattress. A 24-hour urine creatinine clearance was undertaken upon her admission. ASSESSMENT: 1. Right tibial plateau fracture, status post open reduction internal fixation on 05/01/2021. 2. Right lower extremity compartment syndrome, status post fasciotomy 05/02/2021, nonweightbearing. 3. Non-ST elevation myocardial infarction with right coronary artery 90% stenosis, status post cardiac catheterization with stenting 05/19/2021. 4. Clostridium difficile positive. 5. Anemia. 6. History of colon cancer. 7. Chronic pain syndrome. 8. Morbid obesity. 9. Hypertension. 10. Gastroesophageal reflux disease. 11. Seizure disorder. PLAN: The overall plan of care is based on the pre-admission screen and information garnered from therapy assessments. 1. Estimated length of stay is probably around 10 days to 14 days, pending progress. 2. Medical prognosis is reasonably good. 3. Anticipated interventions includes the interdisciplinary acute inpatient rehabilitation program. 4. Anticipated functional outcomes would be for the patient to become modified independent with basic transfers, nonweightbearing on the right lower extremity and to improve as far as ADLs. The hope is for her to achieve a functional level where she can return back home with family assistance. [facility] [address] [place] [address] REHAB UNIT PLAN OF CARE Name: VANNA TOLENTINO Room #: 212-P [facility] IN .R.#: [id number] Admission: 05/24/21 Attend Phys: Netta Dominguez MD Discharge: Date of : 65 Report #: [id number] 5. Discharge destination would be back to the home setting where she lives in an extended stay hotel with her adult daughter and 3-year-old daughter. 6. Expected therapy includes PT and OT 1-1/2 hours per day each 5 days a week throughout the duration of the acute inpatient rehabilitation stay. ADDENDUM: The patient's prognosis for significant practical improvement within a reasonable period of time appears good. Given the patient's complex medical condition and risk of further medical complication, rehabilitation services could not be safely provided at the lower level of care such as a snf facility. By: 1048 2059 Chi Justin MD /nt
[~2021-05-24 14:55] MED LIST changes: +BAYER CHEWABLE81 MG PO; +BENADRYL ALLERG25 MG PO; +CLOPIDOGREL75 MG PO; +CULTURELLE KID1 EAC1 PO; +FIRVANQ50 MG/1 ML PO; +GABAPENTIN 100100 MG PO; +LOPERAMIDE 2 MG2 M1 PO; +LORATIDINE 10 M10 M1 PO; +METOPROLOL SUCC25 M1 PO; +METRO IV 5500 MG/100 IV; +PROBIOTIC1 EAC1 PO; +PROTONIX 20 MG20 MG PO; +SOLU-MEDRO125 MG/23 IV PUSH; +TRAZODONE HCL100 MG PO; +VISTARIL 25 MG25 M1 PO; +VITAMIN D21250 MCG PO; +ZANAFLEX4 MG PO
[2021-05-24 18:00] VITALS: BP 149/76
--- NOTE | 2021-05-24 18:50 | NUR ---
PT ARRIVED TO CCU ACCOMPANIED BY NURSING STAFF AT 1745. DR OSCAR IN ROOM TO SEE PT AT 1815. PT ALERT AND ORIENTED. PT DOES VERBALIZE SOME PAIN ON HER RIGHT LOWER FOOT 5/10. PT EXPRESSED THAT SHE HAS HAD X3 LOOSE STOOLS THROUGHOUT THE DAY.
[2021-05-24 19:47] VITALS: BP 142/74
--- NOTE | 2021-05-25 02:46 | NUR ---
PT IS ALERT AND ORIENTED X4. LUNGS ARE CLEAR. ON ROOM AIR. COMPLAINS OF ABDOMEN MEDICATED FOR PAIN SEE MAR FOR TIME OF ADMINISTRATION. ABDOMEN IS ROUND. BOWEL SOUNDS HYPOACTIVE. DRESSING ON RIGHT LEG. IN ISOLATION FOR C-DIFF PT WAS CRYING EARLIER SAYING HER 3 YEAR OLD CANT COME AND VISIT. SAID SHE COULD JUST FACE TIME HER. CALL LIGHT WITHIN REACH IF NEEDS ASSISTANCE PER NURSING
[2021-05-25 05:20] LABS: ABSOLUTE NEUTROPHILS 10.3 thou/uL (1.4-8.2); BASOPHILS 0.1 % (0.0-2.0); HEMATOCRIT 28.5 % (37.0-47.0); HEMOGLOBIN 9.4 gm/dL (12.0-15.0); LYMPHOCYTES 8.8 % (24.0-44.0); MCH 28.1 pg (26.0-34.0); MCV 85.1 fL (80.0-100.0); MONOCYTES 3.4 % (1.0-8.0); PLATELET COUNT 461 thou/uL (150-400); POLYS 87.7 % (36.0-66.0); RBC 3.35 mil/uL (4.20-5.00); RDW 16.3 % (10.5-14.5); WBC 11.8 thou/uL (4.0-11.0)
[2021-05-25 05:26] VITALS: BP 176/101
[2021-05-25 06:27] LABS: ALBUMIN 2.1 g/dL (3.4-5.0); CALCIUM 8.2 mg/dL (8.5-10.1); CREATININE 1.1 mg/dL (0.6-1.0); MAGNESIUM 1.8 mg/dL (1.8-2.4); TOTAL BILIRUBIN 0.4 mg/dL (0.2-1.0)
[2021-05-25 07:52] VITALS: BP 153/80
--- NOTE | 2021-05-25 10:57 | NUR ---
Assumed care of pt this AM. Pt A&O x4, tearful stating she is in pain. States pain is from abd & PRN pain medication is not helping. Pt had large liquid blood stool this AM. Paged IV team to get new IV per nuc med for bleeding scan. Rt midline placed. Pt refusing any medications that will "make me bleed", including plavix for new cath. Informed Dr. Dominguez. Faheem still patent & draining. SA on the monitor. Will continue to assess pt needs throughout day.
[2021-05-25 11:24] VITALS: BP 147/86
--- NOTE | 2021-05-25 13:55 | NUR ---
A RIGHT #4F POWER MIDLINE WAS PLACED PER HOSPITAL POLICY. THE LINE WAS TRIMMED TO 15CM AND ADVANCED WITHOUT DIFFICULTY. LINE WAS SECURED AND RELEASED FOR USE
--- NOTE | 2021-05-25 14:06 | NUR ---
Patient admits to acute care CCU for GI bleed. Patient intiially admitted to [facility] May 01 post fall, Right tibiaa plateaus/p orif. Patient dc to rehab and readmitted to acute and recent dc to 5n and readmit with GI bleed. Patient resides at extended stay [facility] She has adult dtr Abry and 3 year old child that her dtr caring for while she is hospitalized. Attempted to see patient she was in [facility]. [place]. Sp with acute rehab. Tenative plan for patient to dc to acute rehah once stable.
[2021-05-25 16:35] VITALS: BP 137/70
[2021-05-25 17:31] LABS: HEMATOCRIT 28.8 % (37.0-47.0); HEMOGLOBIN 9.3 gm/dL (12.0-15.0)
[2021-05-25 20:01] VITALS: BP 143/76
--- NOTE | 2021-05-26 03:31 | NUR ---
PT IS A/O X4 AND IS CURRENTLY ON BEDREST. ROOM AIR. VSS;AFEBRILE. SR ON THE MONITOR. CURRENTLY ACTIVE BLEEDING WITH STOOLS X2 THIS SHIFT. LARA IN PLACE AND DRAINING APPROPRIATELY. PT C/O ABD PAIN BUT WISHES TO NOT TAKE ANYMORE PAIN MEDICATION. PLEASANT AND COOPERATIVE BUT IS NOTEABLE HESITANT TO TAKE ANY PRESCRIBED MEDICATION. NURSE EXPLAINED EACH MEDICATION AND PT AGREED TO TAKE MEDICATION. FALL PRECAUTIONS IN PLACE, CALL LIGHT IS WITHIN REACH. WILL CONTINUE TO MONITOR.
[2021-05-26 05:17] VITALS: BP 130/66
[2021-05-26 08:15] VITALS: BP 155/86
--- NOTE | 2021-05-26 11:41 | NUR ---
Assumed care of pt this AM. Pt is A&O x4, on RA, denies any chest pain. SB on the monitor this AM. Pt upset about an argument last night w/ nursing staff. Provided comfort & therapeutic communiction to pt. Pt has had no further BM today. Will continue to assess pt needs.
[2021-05-26 11:48] VITALS: BP 160/82
[2021-05-26 13:55] LABS: HEMATOCRIT 33.1 % (37.0-47.0); HEMOGLOBIN 10.3 gm/dL (12.0-15.0); MCH 26.8 pg (26.0-34.0); MCHC 31.2 g/dL (28.0-37.0); MCV 85.8 fL (80.0-100.0); RBC 3.86 mil/uL (4.20-5.00); RDW 16.8 % (10.5-14.5); WBC 9.1 thou/uL (4.0-11.0)
--- NOTE | 2021-05-26 14:32 | NUR ---
[facility] acute rehab is following along with the goal of pt returning to acute rehab once medicallys table. No weekend dc anticiapted. Possible EGD pending her hgb (her plavix would need to be stopped). Will follow.
[2021-05-26 15:30] VITALS: BP 144/91
[2021-05-26 19:27] VITALS: BP 132/73
[2021-05-27 03:33] LABS: HEMATOCRIT 29.5 % (37.0-47.0); HEMOGLOBIN 9.4 gm/dL (12.0-15.0); MCH 27.1 pg (26.0-34.0); MCHC 31.7 g/dL (28.0-37.0); MCV 85.7 fL (80.0-100.0); RBC 3.45 mil/uL (4.20-5.00); RDW 16.2 % (10.5-14.5); WBC 9.4 thou/uL (4.0-11.0)
--- NOTE | 2021-05-27 06:31 | NUR ---
patient was tearful this shift because of having loose stools, and being in the hospital for over amonth.patient educated on c diff precaution and need to have stools to get rid of c diff. patient says she feels weak. patient calm and cooperative with meds and care. patient c/o abd pain but declined pain medicine. patient had x3 loose stools. patient in bed asleep at this time breathing regular and unlaboured.
[2021-05-27 10:30] VITALS: BP 148/90
--- NOTE | 2021-05-27 11:20 | NUR ---
Assumed care of pt at 0700. Pt a&ox4. Incontinent. Pt c/o her Mayen catheter is hurting her and wants it taken out. Mayen catheter dicontinued. Dressing c/d/i. On c-diff isolation. Call light within reach. Fall precautions in place. Will continue to monitor.
[2021-05-27 16:00] VITALS: BP 121/66
[2021-05-27 20:57] VITALS: BP 137/72
--- NOTE | 2021-05-28 02:38 | NUR ---
PT LYING IN BED. LORTAB PROVIDING PAIN RELIEF. INCONTINENT. RESTING COMFORTABLY. NO NEEDS VOICED. CALL LIGHT WITHIN REACH. FREQUENT OBSERVATION.
[2021-05-28 04:05] VITALS: BP 133/67
[2021-05-28 04:58] LABS: HEMOGLOBIN 8.7 gm/dL (12.0-15.0); MCH 27.7 pg (26.0-34.0); MCHC 32.3 g/dL (28.0-37.0); MCV 85.9 fL (80.0-100.0); RBC 3.14 mil/uL (4.20-5.00); RDW 16.6 % (10.5-14.5); WBC 11.9 thou/uL (4.0-11.0)
[2021-05-28 09:31] VITALS: BP 123/69
[2021-05-28 16:33] VITALS: BP 129/71
[2021-05-28 21:13] VITALS: BP 122/69
[2021-05-29 02:19] VITALS: BP 118/66
--- NOTE | 2021-05-29 05:10 | NUR ---
PT LYING IN BED. LORTAB AND TIZANIDINE PROVIDING PAIN RELIEF. INCONTINENT. RESTING COMFOTSBLY. NO NEEDS VOICED. CALL LIGHT WITHIN REACH. FREQUENT OBSERVATION.
[2021-05-29 05:24] LABS: HEMATOCRIT 28.9 % (37.0-47.0); HEMOGLOBIN 9.2 gm/dL (12.0-15.0)
[2021-05-29 07:30] VITALS: BP 114/66
--- NOTE | 2021-05-29 11:00 | NUR ---
Assumed care of pt at 0700. Pt a&ox4. Denies pain. Dressing c/d/i. Incontinent. RA. In isolation. Possible discharge to [facility]N today. Call light within reach. Fall precautions in place. Will continue to monitor.
[2021-05-29 12:54] VITALS: BP 123/63
[2021-05-29 15:30] VITALS: BP 118/75
[2021-05-29] MEDS ORDERED: FLAGYL500 M1 PO (16:26)
[2021-05-29] MEDS ORDERED: METOPROLOL SUCC50 MG PO (16:26)
[2021-05-29] MEDS ORDERED: PREDNISONE 20 M20 MG PO (16:26)
--- NOTE | 2021-05-29 16:39 | NUR ---
Patient accepted to dc to [facility] and stable to dc today. no further needs.
[2021-05-29 19:21] VITALS: BP 118/72
--- NOTE | 2021-05-29 22:45 | NUR ---
PT TRANSFERRED TO ROOM 516 AT AROUND 2230. RECEIVED BY GOYO BELTRAN RN.NO FURTHER CONCERNS
== END 2021-05-29 22:30 | DRG 377 ==
LOC: 2N 14:55
PROVIDERS: Internal Medicine; Nurse Practitioner; ADMIT Hospitalist; ATTEND Hospitalist
PROC: 05HB33Z Insertion of Infusion Device into Right Basilic Vein, Percutaneous Approach (ICD-10-PCS; principal; 2021-05-25)
DX: K92.2 Gastrointestinal hemorrhage, unspecified (principal); I21.3 ST elevation (STEMI) myocardial infarction of unspecified site; A04.72 Enterocolitis due to Clostridium difficile, not specified as recurrent; N17.9 Acute kidney failure, unspecified; E44.0 Moderate protein-calorie malnutrition; Z68.43 Body mass index [BMI] 50.0-59.9, adult; I24.9 Acute ischemic heart disease, unspecified; G40.909 Epilepsy, unspecified, not intractable, without status epilepticus; E66.01 Morbid (severe) obesity due to excess calories; K21.9 Gastro-esophageal reflux disease without esophagitis; E78.00 Pure hypercholesterolemia, unspecified; G89.4 Chronic pain syndrome; I25.10 Atherosclerotic heart disease of native coronary artery without angina pectoris; D50.0 Iron deficiency anemia secondary to blood loss (chronic); Z20.822 Contact with and (suspected) exposure to COVID-19; I12.9 Hypertensive chronic kidney disease with stage 1 through stage 4 chronic kidney disease, or unspecified chronic kidney disease; N18.30 Chronic kidney disease, stage 3 unspecified; R53.81 Other malaise; Z88.8 Allergy status to other drugs, medicaments and biological substances; Z88.6 Allergy status to analgesic agent; Z91.040 Latex allergy status; Z91.013 Allergy to seafood; Z93.3 Colostomy status; Z85.038 Personal history of other malignant neoplasm of large intestine; Z28.21 Immunization not carried out because of patient refusal
CPT/HCPCS: 10081; 27000

== ENCOUNTER 2021-05-29 14:51 | Inpatient (IN) | payer OTHER ==
[~2021-05-29] VITALS: Ht 162.6 cm; Wt 177.8 kg
[~2021-05-29 14:51] MED LIST changes: -KEPPRA 500 MG500 M1; +KEPPRA 500 MG500 M1 PO
[2021-05-29] MEDS ORDERED: METOPROLOL SUCC50 MG PO (16:26)
[2021-05-29] MEDS ORDERED: PREDNISONE 20 M20 MG PO (16:26)
[2021-05-29] MEDS ORDERED: FLAGYL500 M1 PO (16:26)
--- NOTE | 2021-05-30 01:29 | NUR ---
PT ADMITTED THIS EVENING FROM CCU. PT ADMITTING DIAGNOSIS R TIBIAL PLATEAU FX S/P ORIF. R LE COMPARTMENT SYNDROME S/P FASCIOTOMY. PT ON SPECIAL CONTACT ISOLATION. BARIATRIC BED AND COMMODE. VSS. HS MEDS ALREADY GIVEN IN CCU. ADMIT HX AND ASSESSMENT COMPLETED. PT DID NOT WANT TO SIGN CONSENTS OR DO ANYTHING MORE. SHE WAS VERY TIRED. LARGE LOOSE CDIFF STOOL. VOIDED LARGE AMOUNT OF YELLOW URINE. 2 MAX ASST TO BSC. SLEEPING WELL AT THIS TIME. WILL CONTINUE TO MONITOR FREQUENTLY. PT VERY SAD AND TEARFUL ABOUT BEING AWAY FROM HER 3 YEAR OLD DAUGHTER. PROVIDED MUCH EMOTIONAL SUPPORT.
[2021-05-30 03:59] LABS: HEMATOCRIT 30.7 % (37.0-47.0); HEMOGLOBIN 9.6 gm/dL (12.0-15.0); MCH 27.2 pg (26.0-34.0); MCHC 31.4 g/dL (28.0-37.0); MCV 86.7 fL (80.0-100.0); RBC 3.54 mil/uL (4.20-5.00); RDW 17.8 % (10.5-14.5)
[2021-05-30 04:51] LABS: CALCIUM 8.4 mg/dL (8.5-10.1); CREATININE 1.2 mg/dL (0.6-1.0); POTASSIUM 4.3 mmol/L (3.5-5.1)
[2021-05-30 05:10] VITALS: BP 118/72
[2021-05-30 08:00] VITALS: BP 118/59
--- NOTE | 2021-05-30 10:50 | NUR ---
Nutrition: Pt S/P right tibia fracture S/P ORIF. Hx chronic narcotic use, colostomy, HTN, extreme class 3 obesity. Highly variable weights, 290- 390#. % intake of meals has been poor/fair, generally 30-50% of meals. Pt will typically refuse breakfast as not a breakfst eater but will drink ensure up to 3 times daily. Provides 1080 kcals, 60 gm protein daily from supplements alone. Able to order meals. GI following for lower GIB, now resolved. Recommending EGD/colonoscopy in 3 months. Vitamin D Deficiency-S/P replacement. RD obtain food preferences. Physician has documented moderate malnutrition-defer. Encouraged protein sources for wound healing/surgical incision. Diarrhea improving/C diff. Place as low risk with interventions in place.
[2021-05-30 11:39] LABS: URINE BILIRUBIN NEGATIVE (Negative); URINE BLOOD 3+ (Negative); URINE CLARITY CLOUDY; URINE COLOR BROWN; URINE GLUCOSE-RANDOM* NEGATIVE (Negative); URINE KETONES NEGATIVE (Negative); URINE NITRITE-REFLEX NEGATIVE (Negative); URINE PROTEIN (DIPSTICK) 2+ (Negative); URINE UROBILINOGEN 0.2 E.U./dl (0.2-1.0)
[2021-05-30 11:41] LABS: URINE LEUKOCYTES-REFLEX 3+ (Negative)
[2021-05-30 12:23] LABS: AMORPHOUS URATES Many /LPF (None Seen); CASTS None Seen /LPF (None Seen); SQUAMOUS None Seen /LPF (0-3); TRIPLE PHOSPHATE CRYSTALS 0-3 Few /LPF (None Seen); URINE WBC-REFLEX 6-15 Few /HPF (0-5)
--- NOTE | 2021-05-30 13:29 | NUR ---
Team meeting, Back to acute rehab yesterday afternoon. Prior to hospital, she was staying in extended stay motel with her daughter and younger daughter. Manage own medication. no hh in past. Mod to severe memory and cogtion. will need wheel chair for dc. Will need fww, wheel chair, BBS commode. possible will go and stay with one of her daughters home. Will cont following as needed for dc needs.
--- NOTE | 2021-05-30 14:52 | NUR ---
THOS PATIENT TRANSFERED TO REHAB WITH HER MIDLINE AND NO IV MEDS NOTED AT THIS TIME. RECOMMEND REMOVAL OF LINE TO DECREASE THE RISKS OF A BLOOD STREAM INFECTION
--- NOTE | 2021-05-30 19:29 | NUR ---
ASSSUMED C/O PT AT 0700. PT A&OX4. PT WILLINGLY WORKS WITH THERAPIES WAS UP IN CHAIR FOR A COUPLE OF HOURS THIS MORNING. PT USED BSC AND GAVE SELF A SPONGE BATH WITH OT. PT STILL ON C-DIFF ISOLATION. PT C/O BURNING WHILE VOIDING. UA OBTAINED, PO METRONIDAZOLE STARTED. PT DID GET LIGHT HEADED AND SEEMED A LITTLE BIT OUT OF IT AFTER GETTING BACK INTO BED WITH P.T. VS WER STABLE BG WAS 120. PT STATED SHE WAS JUST VEY TIRED. WILL CONTINUE TO MONITOR.
[2021-05-30 19:57] VITALS: BP 94/44
--- NOTE | 2021-05-31 04:49 | NUR ---
Assumed care on 05/30/21, in bed A&Ox4 experiencing ABD pain that she reports as feeling like the size of her fist and moving in the lower right quadrant. BS noted in all 4 Quadrants with slightly diminished BS in Lower Right Quad. Meds offered @ 21:15, including [place] for pain which the patient refused, saying that she was in such pain that she didn't want to take the medicine currently. When offered the meds again @ 21:45 she accepted and was able to take meds whole with water. Continues on contact precautions d/t C-DIFF, incontinent loose stool with a yellow color and foul oder noted, incontinent care provided. On Metronidazole antifungal p.o. PICC line in the right upper arm is C/D/I with no redness swelling or induration. Will continue to monitor for comfort and safety as per unit protocol.
[2021-05-31 07:15] VITALS: BP 127/70
[2021-05-31 16:26] LABS: HEMATOCRIT 30.5 % (37.0-47.0); HEMOGLOBIN 9.5 gm/dL (12.0-15.0); MCH 27.1 pg (26.0-34.0); MCHC 31.1 g/dL (28.0-37.0); RBC 3.51 mil/uL (4.20-5.00); RDW 17.3 % (10.5-14.5); WBC 12.6 thou/uL (4.0-11.0)
[2021-05-31 16:46] LABS: ALBUMIN 2.4 g/dL (3.4-5.0); CALCIUM 8.5 mg/dL (8.5-10.1); CREATININE 1.4 mg/dL (0.6-1.0); MAGNESIUM 1.8 mg/dL (1.8-2.4); POTASSIUM 3.8 mmol/L (3.5-5.1); TOTAL BILIRUBIN 0.4 mg/dL (0.2-1.0); TOTAL PROTEIN 6.9 g/dL (6.4-8.2)
[2021-05-31 19:39] VITALS: BP 112/67
--- NOTE | 2021-06-01 03:24 | NUR ---
PT ASSESSMENT COMPLETED AND VSS. MEDS GIVEN ORDERED AND WELL TOLERATED. PRN MEDICATION FOR R LOWER LEG PAIN AND ABD CRAMPING HELPFUL. PT VERY AXIOUS AND CRYING ON AND OFF DURING THE SHIFT. PT WORRIED ABOUT HER LEG AND DOPLER. SHE IS CONCERNED THAT SHE MAY HAVE A CLOT AND MAY NEED ANOTHER SURGERY. ALSO, PT VERY ANXIOUS ABOUT NOT BEING HOME WITH HER 3 YEAR OLD DAUGHTER. PROVIDED MUCH EMOTIONAL SUPPORT. BED PARTIALLY DEFLATED AND THAT UPSET PT WELL. CONTACTED JENIFER SORTO, AND GRISEL FOR HELP. FOLLOWED INSTRUCTIONS AND WAS ALBE TO REINFLATE BED. NOW PT SLEEPING WELL. WILL CONTINUE TO MONITOR FREQUENTLY. CDIFF ISOLATION FOLLOWED. PT HAD 2 LARGE INC LIQUID BOWEL MOVEMENTS THIS EVENING. PT HAVING TROUBLE SLEEPING. DANA FALLON ORDERED SLEEP MEDICATION BUT PT REFUSED DOSE. GROIN AREA RED AND PAINFUL. CLEANED PT WELL AND APPLIED BARRIER CREAM. HELPFUL. SLEEPING AT THIS TIME. WILL CONTINUE TO MONITOR FREQUENTLY.
--- NOTE | 2021-06-01 05:52 | NUR ---
THIS MORNING PT CRYING OUT AND YELLING REGARDING R LEG AND FOOT PAIN. PTS RIGHT LEG WAS WARM TO THE TOUCH WITH POSITIVE PULSES AND GOOD CAPILARY REFILL. PT REFUSED PAIN MEDICATION AROUND MIDNIGHT EVEN THOUGH SHE WAS HAVING PAIN. BUT PT DID TAKE PAIN MEDICATION THIS MORNING FOR HER RIGHT LEG PAIN. CONTACTED COIL INSPECTOR LEEANNE WITH CONCERN AND UPDATED HER ON DOPLER RESULTS. NO NEW ORDERS AT THIS TIME AND PT SLEEPING WELL. PT DOES SEEM TO HAVE A LOT OF ANXIETY AND MAY BENEFIT FROM A CONSULT WITH DR BARILLAS. WILL CONTINUE TO MONITOR.
[2021-06-01 17:35] LABS: HEMOGLOBIN 9.2 gm/dL (12.0-15.0); MCH 26.7 pg (26.0-34.0); MCHC 30.8 g/dL (28.0-37.0); MCV 86.8 fL (80.0-100.0); RBC 3.45 mil/uL (4.20-5.00); RDW 17.9 % (10.5-14.5); WBC 13.2 thou/uL (4.0-11.0)
[2021-06-01 17:47] LABS: CALCIUM 8.6 mg/dL (8.5-10.1); CREATININE 1.3 mg/dL (0.6-1.0); MAGNESIUM 1.7 mg/dL (1.8-2.4); POTASSIUM 3.8 mmol/L (3.5-5.1)
[2021-06-01 19:59] LABS: URINE BILIRUBIN NEGATIVE (Negative); URINE BLOOD 3+ (Negative); URINE CLARITY TURBID; URINE COLOR RED; URINE GLUCOSE-RANDOM* NEGATIVE (Negative); URINE KETONES NEGATIVE (Negative); URINE LEUKOCYTES-REFLEX TRACE (Negative); URINE NITRITE-REFLEX POSITIVE (Negative); URINE PROTEIN (DIPSTICK) 2+ (Negative); URINE UROBILINOGEN 0.2 E.U./dl (0.2-1.0)
[2021-06-01 20:03] VITALS: BP 114/72
[2021-06-01 20:03] LABS: CASTS None Seen /LPF (None Seen); CRYSTALS None Seen /LPF (None Seen); SQUAMOUS 0-3 Few /LPF (0-3); URINE RBC >20 Many /HPF (NONE SEEN); URINE WBC-REFLEX 0-5 Rare /HPF (0-5)
--- NOTE | 2021-06-01 20:05 | NUR ---
PT C/O ABDOMINAL PAIN. PT C/O R FOOT PAIN. REGLAN AND GABAPENTIN STARTED. LARA PLACED URINE IS RED IN COLOR AT THIS TIME. NS RUNNING AT 125 PER HOUR. PT BUTTOCKS IS EXCORIATED D/T FREQUENT BOWEL MOVEMENTS BARRIER CREAM APPLIED. WILL CONTINUE TO MONITOR.
--- NOTE | 2021-06-01 23:20 | NUR ---
ASSUMED CARE OF PT AT 1930. PT IS A&OX4. IS ON ROOM AIR. IS STABLE. REPORTS PAIN IN RLE THAT IS BEING MANAGED WITH PAIN MEDS & OTHER THERAPUETIC TECHNIQUES. EDEMA DECREASING. DRSG C/D/I. LIMB ELEVATED. PT IS ABLE TO READJUST SELF IN BED. ASK FOR ASSISTANCE AT TIMES. CONTINUES TO HAVE DIARRHEA WITH C-DIFF. BARRIER CREAM BEING APPLIED TO RECTUM. REMAINS IN SPECIAL CONTACT ISOLATION. FALL PRECAUTIONS & HOURLY ROUNDING CONTINUED THIS SHIFT. IS UP WITH MAX ASSIST X2, GB, WALKER. LABS & VITALS REVIEWED. WILL COTNINUE TO MONITOR. LARA INTACT. URINE SPECIMEN SENT TO LAB. NS INFUSING AT 125ML/HOUR UNTIL COMPLETE. WILL CONTINUE TO MONITOR. CALL LIGHT WITHIN REACH. PT IN ROOM ASLEEP AT THIS TIME. REQUESTED NIGHT MEDS, SLEEP AID, & MUSCLE RELAXER BEFORE BED.
--- NOTE | 2021-06-02 08:45 | NUR ---
PT LYING IN BED. PT DIDN'T COMPLAIN OF ANY PAIN TO RT LOWER LEG. PT HAS DRESSING'S X2 TO RLE. PT STATED SHE FEELS LIKE SHE IS VOIDING THERE IS NOTHING IN LARA TUBING, PT DID HAVE LOOSE BM. PT HAS DARK COLOR URINE TO LARA IN BAG. PT ON ROOM AIR. PT TOOK MEDS WHOLE WITH WATER. IRRIGATED LARA WITH STERILE WATER OF 60ML, NO RETURN OF STERILE WATER. PULLED BACK ON STERILE SYRINGE AND DID GET A FEW BLOOD CLOTS. IMMEDIATLY 700ML OF TEA COLOR URINE IN BAG.
[2021-06-02 09:06] VITALS: BP 200/100
--- NOTE | 2021-06-02 09:20 | NUR ---
Cont. therapy. Will cont following as needed for dc needs.
[2021-06-02 11:00] VITALS: BP 122/69
[2021-06-02 20:14] VITALS: BP 112/81
--- NOTE | 2021-06-03 03:06 | NUR ---
PT CARE ASSUMED WITH PT IN BED RELAXING AND WATCHING TV.PT IS A/O X4.PT IS UP WITH X2 ASSIST.PT INCONTINENT AND HAS A LARA CATHETER IN PLACE.PT HAD A LOOSE BM.WOUND DRESSING ON RT LE I/C/D.PT IS ON CLEAR LIQUID DIET.REFUSE REGLAN.WILL CONTINUE TO MONITOR PER POC
[2021-06-03 07:45] VITALS: BP 132/60
--- NOTE | 2021-06-03 10:51 | NUR ---
PT LYING IN SPECIAL AIR MATTRESS. PT RLE DRESSING INTACT AND ELEVATED ON PILLOW. PT HAS LARA TO DD WITH CLEAR YELLOW URINE. PT IS DRINKING WATER AND TOLERATING CLEAR LIQUIDS. PT HAS PAIN TO LOWER ABD PERIODICALLY AT TIMES. PT STATED SHE IS TIRED OF BEING IN THE HOSPITAL AND ALOT HAS HAPPENED TO HER SINCE SHE HAS BEEN HERE. PT LUNGS CLEAR. PT HAS BOWEL SOUNDS. PT STATED SHE WANTED TO REFUSE MEDS DUE TO THE FEELING OF MEDS SIT IN THE BOTTOM OF HER STOMACH. PT DIET INCREASED TO FULL LIQUIDS. PT TOLERATED CREAM OF WHEAT. PT TOOK MEDS WITH PUDDING AND TOLERATED WELL.
--- NOTE | 2021-06-03 15:27 | NUR ---
ADM HYDROCODONE 10MG PO FOR PAIN TO RT ANKLE OF 6 ON 1-10 SCALE. PT HAS HAD X3 LOOSE BM TODAY. PT UPSET AND WANTING TO GET THIS CDIFF OVER WITH. DR. STEIN CAME TO SEE PT AND WILL SEE HER OUTPATIENT.
[2021-06-03 19:39] VITALS: BP 141/84
--- NOTE | 2021-06-04 06:10 | NUR ---
ASSUMED CARE AT 1900 OF 06/03. PATIENT IS A&0X4. VSS. REPORTS TOLERATBLE PAIN IN RLE, DRESSINGS TO RIGHT BRAN ARE C/D/I. RLE IS ELEVATED WHILE IN BED. PATIENT REMAINS ON SPECIAL CONTACT PRECAUTIONS DUE TO C-DIFF. LOOSE BM X3 DURING SHIFT, BARRIER CREAM APPLIED TO PERIAREA DUE TO SKIN IRRITATION FROM PERSISTENT LOOSE BMS. URINE SPECIMEN FOR CYTOLOGY COLLECTED VIA LARA AND SENT TO LAB. LARA TO DD, DRAINING DARK MANUEL URINE. FALL PRECAUTIONS IN PLACE, CALL LIGHT WITHIN REACH, WILL CONTINUE TO MONITOR.
[2021-06-04 08:51] VITALS: BP 103/73
[2021-06-04 20:15] VITALS: BP 124/72
--- NOTE | 2021-06-05 05:03 | NUR ---
ASSUMED CARE AT 1900 OF 06/04. PATIENT IS A&OX4. DENIES SHORTNESS OF BREATH. REPORTS PAIN IN RLE, MANAGED WITH PRN PAIN MEDICATION. DRESSINGS TO RIGHT BRAN ARE IN PLACE AND INTACT. REMAINS ON SPECIAL CONTACT PRECAUTIONS DUE TO C-DIFF. MINIMAL TO MODERATE ASSIST [place] [facility] [place] AND WALKER. Z-GUARD APPLIED TO PERIAREA. LARA TO DD, DRAINING DARK MANUEL URINE. FALL PRECAUTIONS IN PLACE, CALL LIGHT WITHIN REACH. WILL CONTINUE TO MONITOR.
[2021-06-05 07:52] VITALS: BP 94/64
[2021-06-05 22:10] VITALS: BP 120/72
--- NOTE | 2021-06-06 01:00 | NUR ---
PT ASSESSMENT COMPLETED AND VSS. MEDS GIVEN ORDERED AND WELL TOLERATED. FALL PRECAUTIONS IN PLACE. PT DENIES PAIN/N/SOA. ASST WITH REPOSITION FOR COMFORT. PT LARA DRAINING MODERATE AMOUNT OF DARK YELLOW URINE. SLEEPING WELL AT THIS TIME. WILL CONTINUE TO MONITOR FREQUENTLY.
[2021-06-06 05:35] LABS: ABSOLUTE NEUTROPHILS 4.1 thou/uL (1.4-8.2); BASOPHILS 0.5 % (0.0-2.0); EOSINOPHILS 5.3 % (0.0-3.0); HEMATOCRIT 28.9 % (37.0-47.0); HEMOGLOBIN 9.5 gm/dL (12.0-15.0); LYMPHOCYTES 25.6 % (24.0-44.0); MCH 28.3 pg (26.0-34.0); MCHC 32.9 g/dL (28.0-37.0); MONOCYTES 11.6 % (1.0-8.0); PLATELET COUNT 284 thou/uL (150-400); RBC 3.36 mil/uL (4.20-5.00); RDW 17.2 % (10.5-14.5); WBC 7.1 thou/uL (4.0-11.0)
[2021-06-06 05:54] LABS: CALCIUM 8.6 mg/dL (8.5-10.1); CREATININE 1.2 mg/dL (0.6-1.0); MAGNESIUM 1.1 mg/dL (1.8-2.4); POTASSIUM 3.2 mmol/L (3.5-5.1)
[2021-06-06 07:15] VITALS: BP 95/67
--- NOTE | 2021-06-06 12:51 | NUR ---
team meeting, recommendation: need original weight bearing status. depression with anxiety per neuropsychic. mod assist for bathing. transfers hardboard supervisor touch assist. sit to stand with assist. mid to moderate to memory and cognition. Assist with bill and pills. Re team. needs clothing, 3-4x size.
--- NOTE | 2021-06-06 15:24 | H ---
[facility] [place] [address] HISTORY AND PHYSICAL Name: VANNA TOLENTINO Room #: 516-1 ADM IN M.R.#: [id number] Admission: 05/29/21 Attend Phys: Chi Justin MD Discharge: Date of : 65 Report #: [id number] THIS REPORT FOR: cc: [facility] - Clinic physician unknown [facility] - Clinic physician unknown Chi Justin MD ~ DATE OF SERVICE: 05/29/2021 ADDENDUM HISTORY OF PRESENT ILLNESS: The patient has been readmitted again for acute in-hospital inpatient rehabilitation. She had a prior right tibial plateau fracture for which she underwent ORIF and a subsequent fasciotomy for compartment syndrome nonweightbearing. She has had issues with mental status changes, hypotension and had been transferred back to acute care from rehab for further workup. V/Q scan and venous Doppler of lower extremities were negative. CT of the head was without any acute process. She did undergo cardiac catheterization with stenting and she required 4 units of packed red blood cells for acute anemia. She subsequently developed blood in her stool, was discharged again back to acute care for further GI testing. Cardiology did not want to hold the Plavix due to the recent stent. Bleeding scan was not very conclusive. Hemoglobin was stabilized. She was readmitted now again for the third time this hospital stay back to acute rehab on . As far as past medical history, allergies, social history, habits, please see documentation as noted. MEDICATIONS: Per the OCT. REVIEW OF SYSTEMS: No chest pain, shortness of breath or abdominal discomfort. Please see the full 14-point review of systems. PHYSICAL EXAMINATION: GENERAL: She was in no distress. When seen earlier, alert, oriented, pleasant on room air. Mood seemed improved. HEENT: Appeared benign. NECK: No lymphadenopathy. CHEST: Sounded clear to auscultation. CARDIAC: Regular rate and rhythm. ABDOMEN: Bowel sounds positive, nontender. Morbid obesity. EXTREMITIES: Right lower extremity incision with dressing clean. She has decreased edema of that right lower extremity. No focal calf swelling. Functional range of motion bilateral upper extremities with strength good in her upper body. Lower extremities: She is able to lift the left leg up off the bed and can lift the right leg some up off the bed. She is min assist to come to stand and has been up taking a couple of steps with the front-wheeled walker [facility] [address] [place] [address] HISTORY AND PHYSICAL Name: VANNA TOLENTINO Room #: 516-1 ADM IN ..#: [id number] Admission: 05/29/21 Attend Phys: Chi Justin MD Discharge: Date of : 65 Report #: [id number] with assistance. She is nonweightbearing on that right lower extremity. ASSESSMENT: 1. Right tibial plateau fracture, status post ORIF 05/01/2021. 2. Right lower extremity compartment syndrome, status post fasciotomy 05/02/2021, nonweightbearing. 3. Non-ST elevation myocardial infarction with cardiac catheterization with stenting 05/19/2021. 4. Clostridium difficile positive. 5. Anemia with gastrointestinal bleed. 6. History of colon cancer. 7. Chronic pain syndrome. 8. Morbid obesity. 9. Hypertension. 10. Gastroesophageal reflux disease. 11. Seizure disorder. PLAN: The patient has been admitted for acute in-hospital inpatient rehabilitation. Please see the patient's previous and current functional status. As far as risk of complications, she does have the multiple medical comorbidities as noted above. Initial plan of care involves the interdisciplinary acute inpatient rehabilitation program. Prognosis is reasonably good. Estimated length of stay probably around 14 days. Potential barriers would include her multiple medical comorbidities and decreased functional status. The patient meets diagnostic criteria for an acute in-hospital inpatient rehabilitation stay. She meets the medical necessity criteria, and we will have the residential solar sales consultant physicians continue to follow. She does have the tolerance for therapies and has appropriate discharge goals back to the home setting. I agree with the documentation otherwise as noted. <ELECTRONICALLY SIGNED> By: Chi Justin MD 06/06/21 1524 [id number] Chi Justin MD /nt
--- NOTE | 2021-06-06 15:25 | PLAN ---
[facility] [place] [address] [place] [address] REHAB UNIT PLAN OF CARE Name: VANNA TOLENTINO Room #: 516-1 ADM IN M.R.#: [id number] Admission: 05/29/21 Attend Phys: Chi Justin MD Discharge: Date of : 65 Report #: [id number] THIS REPORT FOR: cc: [facility] - Clinic physician unknown [facility] - Clinic physician unknown Chi Justin MD ~ DATE OF SERVICE: 05/31/2021 PROGRESS NOTE AND OVERALL PLAN OF CARE HISTORY OF PRESENT ILLNESS: The patient is seen back in followup. She was alert, pleasant, in good spirits. Temperature 36.9, pulse 87, respirations 20, blood pressure 127/70. She was in no distress. Appeared somewhat pleased with her progress. She is advanced to a min assist level with sit to stand and is min assist with bed to chair. She is able to hop 8 feet min assist with a front-wheeled walker. In occupational therapy, lower body dressing has been dependent with work on upper body dressing as well. Bathing is mod assist upper body and max assist lower body per occupational therapy. ASSESSMENT: 1. Right tibia plateau fracture, status post open reduction internal fixation 05/01/2021. 2. Right lower extremity compartment syndrome, status post fasciotomy 05/02/2021, nonweightbearing. 3. Non-ST elevation myocardial infarction, right coronary artery 90% stenosis, status post cardiac catheterization with stenting 05/19/2021. 4. Clostridium difficile positive. 5. Anemia with gastrointestinal bleed. 6. History of colon cancer. 7. Chronic pain syndrome. 8. Morbid obesity. 9. Hypertension. 10. Gastroesophageal reflux disease. 11. Seizure disorder. PLAN: The overall plan of care is based on the pre-admission screen and information garnered from therapy assessments. 1. Estimated length of stay is probably around 14 days. 2. Medical prognosis is reasonably good. 3. Anticipated interventions includes the interdisciplinary acute inpatient rehabilitation program. 4. Anticipated functional outcomes would be for the patient to become modified independent with transfers, mobility and ADLs and to achieve a functional level where she can return back to the home setting. 5. Discharge destination would be back to family member's house. It is my understanding she is going to be staying with the daughter per our team conference. 6. Expected therapy by discipline includes PT, OT and speech one hour per day each 5 days/ week as she does have moderate to severe cognitive [address] [address] REHAB UNIT PLAN OF CARE Name: VANNA TOLENTINO Room #: 516-[address] [facility]#: [id number] Admission: 05/29/21 Attend Phys: Chi Justin MD Discharge: Date of : 65 Report #: [id number] deficits with moderate memory deficits. ADDENDUM: The patient's prognosis for significant practical improvement within a reasonable period of time appears good. Given the patient's complex medical condition and risk of further medical complication, rehabilitation services could not be safely provided at the lower level of care such as a senior living facility. <ELECTRONICALLY SIGNED> By: Chi Justin MD 06/06/21 1525 [id number] Chi Justin MD /nt
--- NOTE | 2021-06-06 19:37 | NUR ---
PT WILLINGLY WORKS WITH THERAPIES BUT TIRES EASILY. PT SEEMS TO BE VERY FATIGUED IN ADTERNOONS AND BECOMES JOSE LETHARGIC AND ALMOST NON VERBAL WHEN SHE IS VERY TIRED. PT MAY NEED TO NIGHT SIT UP A LONG DURING SHIFT OR PERHAPS DO P.T. AND O.T. BACK TO BACK AND BE DONE IN THE MORNING.
[2021-06-06 20:00] VITALS: BP 130/71
--- NOTE | 2021-06-07 03:57 | NUR ---
ASSUMED CARE AT 1900 OF 06/06. PATIENT IS A&OX4. DENIES ABDOMINAL PAIN OR DISCOMFORT. REPORTS RLE PAIN, MANAGED WITH PRN PAIN MEDICATION AND MUSCLE RELAXER. RLE REMAINS ELEVATED WHILE IN BED. DRESSINGS TO RIGHT BRAN ARE IN PLACE AND REINFORCED PER PATIENT REQUEST. TOLERATED ORAL MEDICATIONS WHOLE WITH WATER. REMAINS ON SPECIAL CONTACT PRECAUTIONS DUE TO C-DIFF. LARA TO DD, DRAINING DARK MANUEL URINE. ORAL FLUIDS ENCOURAGED. FALL PRECAUTIONS IN PLACE, CALL LIGHT WITHIN REACH. WILL CONTINUE TO MONITOR.
[2021-06-07 07:15] VITALS: BP 91/60
--- NOTE | 2021-06-07 09:49 | NUR ---
PT WORKING WITH ST AT THIS TIME. PT IN GOOD SPIRITS. PT HAS LARA TO DD. PT DRESSING COMING LOOSE TO RT THIGH AND NOTICED A STAPLE IN PLACE TO UPPER THIGH. PT DENIES PAIN AT THIS TIME, NO COMPLAINTS OF STOMACH ISSUES.
--- NOTE | 2021-06-07 13:37 | NUR ---
PT TRANSFERED FROM CHAIR TO BED. PT ABLE TO ALEKS FROM CHAIR TO BED. PT HAD PAIN TO RLE AFTER TRANSFER. PT JANE HAS TEA COLOR IN BAG/TUBING. PT ENCOURAGED TO DRINK MORE WATER. PT STATED SHE THOUGHT IT WAS PULLED DURING TRANSFER THIS AM. PT CRYING IN PAIN. ADM HYDROCODONE 10MG PO FOR PAIN TO RLE.
--- NOTE | 2021-06-07 19:03 | NUR ---
PT REFUSED TODAY FOR CATH SECURE TO LEG. EDUCATED PT ABOUT POSSIBILITY OF LARA PULLING.
[2021-06-07 19:57] VITALS: BP 116/74
--- NOTE | 2021-06-08 02:38 | NUR ---
ASSUMED CARE AT 1900 OF 06/07. PATIENT IS A&OX4, ABLE TO MAKE NEEDS KNOWN. REPORTS PAIN RLE, WHICH IS MANAGED WITH PRN PAIN MEDICATION AND NON-PHARMACOLOGICAL TREATMENTS. DRESSING ON RIGHT BRAN ARE IN PLACE AND INTACT. CONTACT GUARD ASSIST WITH TRANSFERS TO [facility] [place] USING GB AND WALKER. PATIENT CALLED OUT FOR MEDICATION AT HS. FALL PRECAUTIONS IN PLACE, CALL LIGHT WITHIN REACH. WILL CONTINUE TO MONITOR.
--- NOTE | 2021-06-08 10:07 | PATH ---
[facility] [address] [place] [address] PATHOLOGY RPT PROCEDURE Name: VANNA TOLENTINO Room #: 516-1 ADM IN M.R.#: [id number] Admission: 05/29/21 Date of : 65 Discharge: Report #: [id number] Path Case #: [id number] Note [facility] Accession Number: [id number] TESTS RESULT FLAG UNITS REF RANGE LAB Clinician Provided Cytology Information No. of containers..01 Other (Miscellaneous) Source: URINE DIAGNOSIS: 02 URINE (CATH) INCONCLUSIVE. 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 MARKED ACUTE INFLAMMATION IN THE BACKGROUND. Comment: A rare atypical urothelial cell is identified with low nuclear to cytoplasmic ratio in a background of marked acute inflammation. This cell may represent reactive change. Clinical correlation is required. Pathologist ICD10: 02 R82.89 Signed out by: Jean Hollis MD, Pathologist NPI- [id number] Performed by: Rachelle Devine, Chin Strap Maker ([facility]) Gross description: 01 20ML, HAZNoemí, GOLD /LCS 06/06/2021 1300 Local FLAG LEGEND: L-Low Normal,H-High Normal,LL-Alert Low,HH-Alert High <-Panic Low,>-Panic High,A-Abnormal,AA-Critical Abnormal Performed at: 01 [facility] [address] [place] [address] Cricket Robb MD, 02 [facility] [address] [address] Karis Hollis MD, Specimen Comment: A courtesy copy of this report has been sent to [phone], [phone] Specimen Comment: [phone] Specimen Comment: Report sent to / DR STEIN Specimen Comment: A duplicate report has been generated due to demographic updates. [address] [address] PATHOLOGY RPT PROCEDURE Name: VANNA TOLENTINO Room #: 516-1 ADM IN M.R.#: [id number] Admission: 05/29/21 Date of : 65 Discharge: Report #: [id number] Path Case #: [id number] Performed at: 01 [facility] [place] [address], [place], [place] [id number] MD Cricket Robb MD Phone: [phone]
[2021-06-08 19:59] VITALS: BP 109/73
--- NOTE | 2021-06-09 00:21 | NUR ---
PT ALERT AND ORIENTED X 4. LARA PATENT DRAINING YELLOW URINE. DRESSINGS TO RLE C/D/I. PT TAKES MEDS WITH WATER WITHOUT DIFFICULTY. C/O PAIN IN RLE. HYDROCODONE GIVEN ORDERED. BED ALARM ON FOR SAFETY. PT APPEARS TO BE SLEEPING ON HOURLY ROUNDS.
[2021-06-09 06:52] LABS: HEMATOCRIT 30.2 % (37.0-47.0); HEMOGLOBIN 9.7 gm/dL (12.0-15.0); MCH 27.4 pg (26.0-34.0); MCV 85.8 fL (80.0-100.0); RBC 3.53 mil/uL (4.20-5.00); RDW 17.6 % (10.5-14.5)
[2021-06-09 07:11] LABS: CALCIUM 8.6 mg/dL (8.5-10.1); CREATININE 1.3 mg/dL (0.6-1.0); MAGNESIUM 1.2 mg/dL (1.8-2.4); POTASSIUM 3.5 mmol/L (3.5-5.1)
--- NOTE | 2021-06-09 10:19 | NUR ---
ADM HYDROCODONE 10MG PO FOR PAIN TO RLE OF 6 ON 1-10 SCALE.
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
[2021-06-09 10:30] VITALS: BP 102/67
--- NOTE | 2021-06-09 10:33 | NUR ---
Please obtain current weight.
--- NOTE | 2021-06-09 14:30 | NUR ---
STARTED MAG 2GM IV TO RUE MIDLINE.
--- NOTE | 2021-06-09 16:57 | NUR ---
HUNG SECOND MAG AT THIS TIME IV.
--- NOTE | 2021-06-09 18:42 | NUR ---
PT HAD 225ML OUT OF LARA AND WAS TEA COLOR. PT ASKED IF THIS CRIME PREVENTION WORKER COULD FLUSH IT. PLACED 50ML OF STERILE WATER AND SYRINGE INTO LARA WITHOUT ANY RESISTANCE. PT IMMEDIATLY DRAINED CLEAR YELLOW URINE. PT STATED SHE COULD SEE SHE IS VOIDING IN TUBE. ENCOURAGED PT TO DRINK WATER.
[2021-06-09 19:59] VITALS: BP 112/72
--- NOTE | 2021-06-10 00:40 | NUR ---
PT ALERT AND ORIENTED X 4. LARA PATENT DRAINING CLEAR YELLOW URINE. LARA MIDLINE IV INTACT AND PATENT. DRESSINGS TO RLE C/D/I. PT DENIES PAIN OR DISCOMFORT SO FAR TONIGHT. BED ALARM ON FOR SAFETY. PT APPEARS TO BE SLEEPING ON HOURLY ROUNDS.
--- NOTE | 2021-06-10 09:26 | NUR ---
ASSUMED CARE AT 0700. PATIENT IS ALERT AND ORIENTED X4. PATIENT GONZALEZ'S, DICTAPHONE TECHNICIAN ARE EQUAL. LUNGS ARE DEMINHSED, ENCOURGAED I.S. ABD IS SOFT WITH BSX4. PATIENT WAS UP TO THE [facility] TO HAVE BM. PATIENT HAS LARA TO DD, DRAINING MANUEL COLORED URINE. RIGHT LOWER LEG WOUND DRESSING DRY AND INTACT. FALL AND SAFETY PROTOCOLS IN PLACE. C/O RIGHT LEG PAIN . MEDICATED WITH PRN PAIN MED. CONTINIUES TO PROGRESS SLOWLY TOWARDS D/C GOALS. PATIENT HAS RIGHT MIDLINE FOR IV MEDS. IV SITE WITHOUT REDNESS OR SWELLING. WILL CONTINUE TO MONITER.
[2021-06-10 19:39] VITALS: BP 97/58
--- NOTE | 2021-06-11 02:31 | NUR ---
assumed care approx 1900 evening 06/10. pt lying in bed with head of bed elevated talking on phone. pt alert and oriented x4. chamberlain to dd with yellow urine to bag. pt in isolation for c-diff. pt given hs meds with water and pt refused hs Trazadone stating she did not need any sleeping meds. pt does appear to be sleeping soundly. bed alarm on and call light in reach. will continue to monitor.
[2021-06-11 08:00] VITALS: BP 101/66
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
--- NOTE | 2021-06-11 16:54 | NUR ---
Assumed care to Pt at shift change, A/O x 4, seems comfortable in bed wactching TV, free of fall, all safety measures in place, stable, pain controlled , surgical sites dressings , D, C , I, no complications noted, IV flushed, Pt was able to move from bed to chair , Up with 2 assist, using FWW, gait belt , VSS , labs reviewed, all meds given as scheduled, takes pills whole with water, had one BM so far at this time of chatting, I/O's satisfactory, chamberlain patent, appropriate mood & good appetite, no new concerns.
[2021-06-11 19:35] VITALS: BP 100/67
--- NOTE | 2021-06-12 00:27 | NUR ---
ASSUMED CARE AT 1900 OF 06/11. PATIENT IS A&OX4, DENIES SHORTNESS OF BREATH. REPORTS PAIN IN RLE, PAIN MANAGED WITH PRN HYDROCODONE AND TIZANIDINE. MIN TO MODERATE ASSIST WITH [place] [facility] AND WALKER. PATIENT REMAINS NWB ON RLE. DRESSING OVER RIGHT BRAN ARE CDI. LARA TO DD, DRAINING DARK YELLOW URINE. ORAL FLUID ENCOURAGED. FALL PRECAUTIONS IN PLACE, CALL LIGHT WITHIN REACH. WILL CONTINUE TO MONITOR.
--- NOTE | 2021-06-12 18:31 | NUR ---
Assumed pt care at 0700. Pt was alert and oriented x4. Calm, pleasant and cooperative with care. Took meds whole, no difficulty noted. Pt is moderate assist with care. vss this shift. Denies having pain this shift. Pt stated she preferes taking her pain meds at 2100. Pt called at 9am and 1400 for her meds. Continent of bowel and bladder this shift. Had a large bowel movement this shift. Makes needs known to staff. Fall precaution in place. Call light within reach. At time pt is in bed resting. Mayen removed this shift. Pt tolerated it well. R IV upper arm midline removed PER DR order, pt tolerated it well. Will continue to monitor.
[2021-06-12 19:33] VITALS: BP 123/84
--- NOTE | 2021-06-13 00:56 | NUR ---
ASSUMED CARE OF PT ON 06/12/21 AT 1925. PT IS A&OX4. IS ON ROOM AIR. IS STABLE. REPORTS PAIN 6/10 IN RLE. BEING MANAGED WITH PAIN MEDS & OTHER THERAPUETIC TECHNIQUES. DRSG C/D/I. ELEVATED. SKIN IS PEELING. NO EDEMA PRESENT. IS ON LOW AIRLOSS MATTRESS. IS ABLE TO REPOSITION SELF IN BED. IS UP WITH 1 ASSIST, GB, WALKER TO BSC. NWT ON RIGHT. FALL PRECAUTIONS & HOURLY ROUNDING CONITNUED THIS SHIFT. REMAINS ON SPECIAL CONTACT ISOLATION FOR C-DIFF. REPORTED STOOLS ARE SOFT. PT STATED, "THIS IS HOW MY STOOLS ARE SINCE I HAVE HAD CANCER. THEY ARE EXPECTING THEM TO BE SOLID, BUT THEY WON'T". LABS & VITALS REVIEWED. PT REFUSED SLEEP AID. WILL CONTINUE TO MONITOR.
--- NOTE | 2021-06-13 13:26 | NUR ---
Team recommendation: not needing assist with medication or finances per speech. She is getting dressed and cont. to work with ot. She still trying to find family that doesn't have stairs to enter or last resort she will go back to extended stay motel. Faheem Kang was dc yesterday. [facility]o - [facility], to visit her, still has zoraida and is still nonwt bearing. Dc 06/16 will need bariatric commode, bariatric wheelchair. Fww transferer to the wheelchair. hh nurse only.
--- NOTE | 2021-06-13 14:49 | NUR ---
MESSAGE LEFT AT DR BURKS OFFICE [phone] ON NR ARLYN NURSES PHONE RE WT BEARING STATUS -6 WEEKS [id number] DC SATURDAY.
--- NOTE | 2021-06-13 14:51 | NUR ---
DID REPORT DURING AM ASSESSMENT CONCERN THAT SHE HAD VOIDED SEVERAL TIMES LAST PM BUT DIDN'T FEEL LIKE SHE WAS GETTING BLADDER EMPTIED. BLADDER SCAN COMPLETED AT 1300 AFTER VOIDING APPROX 120CC IN BSC. BLADDER SCAN SHOWS 94 CC IN BLADDER. DID HAVE BM AT TIME OF VOID. REQUESTED AND RECEIVED [id number]/325MGPO PRN AT 1230 FOR RLE PAIN RATED A 7 ON 1-10 SCALE-STATES SHE DOES NOT LIKE TO TAKE PAIN MEDICINE BUT WAS RECEPTIVE TO EDUCATION FROM NURSING RE PAIN MANAGEMENT. DRESSINGS X2 INTACT TO RLE AND ARE C/D.TAKES PO FLUIDS WELL.
--- NOTE | 2021-06-13 17:32 | NUR ---
DID VOID APPROX 400 CC IN BSC AT APPROX 1400 AND STATES SHE FEELS THOUGH THIS RELIEVED THE PRESSURE IN BLADDER-BLADDER SCAn COMPLETED AFTER VOID AND INDICATES 75 CC REMAINING IN BLADDER.
--- NOTE | 2021-06-13 17:35 | NUR ---
RECEIVED CALL BACK FROM DR. STODDARD'S NURSE RADHA-PER DR. STODDARD PT IS TO REMAIN NON-WT BEARING UNTIL MD "REVIEWS HER X-RAYS" INFORMED THAT PT WAS A PENDING DC FOR Saturday AND THAT TREATMENT TEAM REQUESTED CLARIFICATION OF WT BEARING STATUS STEPHANIE TO FACILITATE COORDINATION OF SERVICES AT TIME OF DC.
[2021-06-13 19:50] VITALS: BP 108/61
--- NOTE | 2021-06-14 02:38 | NUR ---
ASSUMED CARE AT 1900 OF 06/13. PATIENT IS A&OX4, ABLE TO MAKE NEEDS KNOWN. CALLED OUT FOR MEDICATIONS AT HS. REPORTED PAIN IN RLE, WHICH IS MANAGED WITH PRN PAIN MEDICATION AND OTHER NON-PHARMACOLOGICAL TREATMENTS. REMAINS NWB ON RLE, DRESSING TO RIGHT BRAN ARE CDI. MINIMAL ASSIST WITH TRANSFERS TO BS, USING GB AND WALKER. SLEEPING DURING HOURLY ROUNDS. FALL PRECAUTIONS IN PLACE, CALL LIGHT WITHIN REACH. WILL CONTINUE TO MONITOR.
[2021-06-14 08:00] VITALS: BP 102/63
--- NOTE | 2021-06-14 14:15 | NUR ---
PATIENT IS ALERT, AND ORIENTED X 3-4 ABLE TO VOICE NEED. PATIENT TOOK ALL MEDICATION WHOLE WITHOUT DIFFICULTY, SHE IS EATING MEALS, AND DRINKING FLUID FAIRLY WELL. LUNGS WITH DIMINISHED SOUND PER AUSCULTATION IN ALL LOBE, BS+X4, ABD SOFT, NON-TENDER TO TOUCH. DRESSING IN PLACE TO RIGHT BRAN, NO DRAINAGE NOTED. PATIENT C/O BRUISE TO RIGHT ANKLE, CHIMNEY REPAIRER (SEVEN) NOTIFIED. PRN HYDROCODONE GIVEN X 2 AT 0923HRS, AND 1403HRS FOR PAIN. PATIENT TRANSFERS WITH MINIMAL ASSIST AND GAIT BELT/WALKER. SHE HAD SOFT BOWEL MOVEMENT THIS MORNING, VOIDING WITHOUT DIFFICUYLTY. PATIENT REMAIN NWB TO RIGHT LOWER EXTREMITY, WAS TEARFUL THIS AFTERNOON WHILE PHYSICAL THERAPIST ATTEMPTING TO WORK WITH HER. SHE STOPPED CRYING SOON PT LEFT THE ROOM. NO SIGN OF ACUTE DISTRESS NOTED AT THIS TIME, WILL MONITOR FOR SAFETY.
--- NOTE | 2021-06-14 17:09 | NUR ---
[facility]asha[facility], [facility] Vazquez, and [facility] are all on back order for w/c and especially bebo w/c. Will continue to try some smaller dme providers in the area.
[2021-06-14 19:31] VITALS: BP 116/67
--- NOTE | 2021-06-15 05:22 | NUR ---
ASSUMED CARE AT 1915 OF 06/14. PATIENT IS A&OX4, DENIES SHORTNESS OF BREATH. REPORTS RLE PAIN, WITH CONCENTRATION AROUND ANKLE. ICEPACK APPLIED TO ANKLE, AND PRN PAIN MEDICATION ADMINISTERED TO MANAGE PAIN. STAND BY ASSIST WITH TRANSFER FROM BED TO C, USING GB AND WALKER. REMAINS NWB ON RLE, AND RIGHT BRAN DRESSINGS ARE IN PLACE AND INTACT. VOIDING SMALL AMOUNT OF MANUEL COLORED URINE, ORAL FLUIDS ENCOURAGED. FALL PRCAUTIONS IN PLACE, CALL LIGHT WITHIN REACH. WILL CONTINUE TO MONITOR.
[2021-06-15 07:15] VITALS: BP 117/78
--- NOTE | 2021-06-15 10:55 | NUR ---
ASSUMED CARE AT 0700. PATIENT IS ALERT AND ORIENTED X4. PATIENT GONZALEZ'S, RETURNED GOODS INSPECTOR ARE EQUAL. LUNGS ARE CLEAR . ABD IS SOFT WITH BSX4. UP TO BSC TO VOID AND HAVE BM. PATIENT IS UP WITH SBA OF 1 STAFF AND GAIT BELT TO BSC. APPETITE IS GOOD. RIGHT LEG DRESSING IS DRY AND INTACT. FALL AND SAFETY PROTOCOLS IN PLACE. DENIES PAIN AT THIS TIME. PLAN D/C IN A.M. CONTINUES TO PROGRESS TOWARDS D/C GOALS. WILL CONTINUE TO MONITER.
--- NOTE | 2021-06-15 13:59 | NUR ---
Cm spoke team left message with p, no answer back about 26" wc, provider plus, [facility], [facility] and [facility] do not have 26" wheel chair and other sizes back ordered. Spoke with [facility] has 24 " wc, therapy trying that out to see if it would work for cherelle, it does. Trent faxed 24" wheel chair order to [facility] [employer] fax # [phone], phone # [phone].
[2021-06-15 19:56] VITALS: BP 91/55
--- NOTE | 2021-06-16 02:26 | NUR ---
assumed care approx 1900 evening 06/15. pt alert and oriented x4, appropriate and cooperative. pt in good mood looking forward to discharge. pt called out for hs meds and took with water tolerating well. pt given pain meds as ordered. pt appears to be sleeping soundly. bed alarm on and call light in reach. will continue to monitor.
[2021-06-16 06:58] VITALS: BP 91/55
--- NOTE | 2021-06-16 07:00 | NUR ---
Dc today, huber blankenship nurse only. Will need to vouch for medications, ok to vouch for medication per supervisior r/t jim not have money for her copay. She will be going back to the extended stay [facility] at [address], [facility] [address] # [phone], she will need wheel chair transportation home after [facility] [employer] company delivers her 24 " wheel chair today.
[2021-06-16 07:15] VITALS: BP 112/69
[2021-06-16 08:31] VITALS: BP 91/55
[2021-06-16] MEDS ORDERED: MAGOX 400400 MG PO ×2 (09:03→12:12)
[2021-06-16] MEDS ORDERED: PROTONIX 20 MG20 MG PO ×2 (09:03→12:12)
[2021-06-16] MEDS ORDERED: GABAPENTIN 100100 MG PO ×3 (09:03→12:12)
[2021-06-16] MEDS ORDERED: CLOPIDOGREL75 MG PO ×2 (09:03→12:12)
[2021-06-16] MEDS ORDERED: ZANAFLEX4 MG PO ×2 (09:03→12:12)
[2021-06-16] MEDS ORDERED: ATORVASTATIN CA80 MG PO ×2 (09:03→12:12)
[2021-06-16] MEDS ORDERED: METOPROLOL SUCC50 MG PO ×2 (09:03→12:12)
[2021-06-16] MEDS ORDERED: KEPPRA 500 MG500 M1 PO ×2 (09:03→12:12)
[2021-06-16] MEDS ORDERED: PROBIOTIC1 EAC1 PO ×2 (09:03→12:12)
[2021-06-16] MEDS ORDERED: VITAMIN D350 MC3 PO ×2 (09:05→12:12)
[2021-06-16] MEDS ORDERED: NORCO 10-325 T1 EACH PO (09:46)
--- NOTE | 2021-06-16 12:02 | NUR ---
NM RECALLED THAT DETECTIVES FROM [facility] HAD REQUESTED TO KNOW WHEN PT IS CLOSE TO DISCHARGE, SO THEY CAN FOLLOW UP WITH HER. PATIENT WAS NOTIFIED OF THIS REQUEST, AND STATED, "YES, i WANT YOU TO CONTACT THEM AND GIVE THEM WHAT THEY NEED TO BE ABLE TO GET AHOLD OF ME." HER DISCHARGE DATE AND DESTINATION HAVE BEEN COMMUNICATED TO SGT. ALFARO AT [facility]. PT VERBALIZED THAT SHE IS THANKFUL THAT THEY ARE STILL WORKING ON THIS AND LOOKING FORWARD TO TALKING WITH THEM.
[2021-06-16] MEDS ORDERED: SYMBICORT80 MCG/4.1 INH (12:12)
--- NOTE | 2021-06-16 17:05 | NUR ---
ASSESSMENT CHARTED. PT ALERT AND ORIENTED. VSS. PRN PAIN MED GIVEN WITH PARTIAL RELIEF. ORDERS GIVEN TO DISCHARGE PT TO H/H. DISCHARGE INSTRUCTIONS GIVEN TO PT. PT VERBERLISED UNDERSTANDING.
== END 2021-06-16 18:13 | disposition home or self-care (01) | DRG 947 ==
PROVIDERS: Internal Medicine; Nurse Practitioner; Nurse Practitioner Family; ADMIT Physical Medicine & Rehabilitation; ATTEND Physical Medicine & Rehabilitation
PROC: 05H933Z Insertion of Infusion Device into Right Brachial Vein, Percutaneous Approach (ICD-10-PCS; principal; 2021-06-04)
DX: R53.81 Other malaise (principal); I21.4 Non-ST elevation (NSTEMI) myocardial infarction; K92.2 Gastrointestinal hemorrhage, unspecified; A04.72 Enterocolitis due to Clostridium difficile, not specified as recurrent; N17.9 Acute kidney failure, unspecified; T79.A21A Traumatic compartment syndrome of right lower extremity, initial encounter; E44.0 Moderate protein-calorie malnutrition; K56.7 Ileus, unspecified; K56.600 Partial intestinal obstruction, unspecified as to cause; N39.0 Urinary tract infection, site not specified; Z68.44 Body mass index [BMI] 60.0-69.9, adult; D64.9 Anemia, unspecified; N18.9 Chronic kidney disease, unspecified; S82.91XA Unspecified fracture of right lower leg, initial encounter for closed fracture; G40.909 Epilepsy, unspecified, not intractable, without status epilepticus; E66.01 Morbid (severe) obesity due to excess calories; I25.10 Atherosclerotic heart disease of native coronary artery without angina pectoris; E78.5 Hyperlipidemia, unspecified; G89.4 Chronic pain syndrome; E78.00 Pure hypercholesterolemia, unspecified; E83.42 Hypomagnesemia; E87.6 Hypokalemia; K21.9 Gastro-esophageal reflux disease without esophagitis; F32.9 Major depressive disorder, single episode, unspecified; F41.9 Anxiety disorder, unspecified; R41.9 Unspecified symptoms and signs involving cognitive functions and awareness; Z88.8 Allergy status to other drugs, medicaments and biological substances; Z88.6 Allergy status to analgesic agent; Z88.1 Allergy status to other antibiotic agents; Z95.5 Presence of coronary angioplasty implant and graft; Z85.038 Personal history of other malignant neoplasm of large intestine; Z91.040 Latex allergy status; Z91.013 Allergy to seafood; W18.39XA Other fall on same level, initial encounter; Y93.89 Activity, other specified; Y92.89 Other specified places as the place of occurrence of the external cause; Y99.8 Other external cause status
CPT/HCPCS: 10112